=== PATIENT | male | born 1975 | race Caucasian/White ===

== ENCOUNTER → 2016-12-26 | Outpatient (CLI) | payer OTHER ==
[~2016-12-26] MED LIST: BSP15 PO; CLB200 PO; CYM/30 PO; GABA-113 PO; LANS30CA12 PO; NAPR-1169 PO; OXYC1TAB3 PO; POLY335019 PO; TOPI100T20 PO; TRAM-10 PO; [UNRECOGNIZED DRUG - REMARK] TOP
--- NOTE | 2016-12-26 11:53 | DIAGNOSTIC IMAGING REPORT ---
FLUOROSCOPIC SMALL BOWEL FOLLOW-THROUGH CLINICAL HISTORY: Generalized abdominal pain. Bloating. COMPARISON STUDY: No priors. TECHNIQUE: An abdominal concrete handler radiograph was performed. The patient consumed several of thin barium and a small follow-through was performed. Overhead radiographs and spot compression images were obtained. FINDINGS: The abdominal concrete handler radiograph shows a nonobstructed abdominal bowel gas pattern. No evidence of intraperitoneal free air is seen. Cholecystectomy clips are identified in the right upper quadrant. A nonobstructing left renal calculus is questioned. There is evidence of L4-S1 spinal fusion. The bony structures appear intact. On the small bowel follow-through, there is normal transit time with contrast identified in the colon at 80 minutes. The stomach and duodenum are normal in configuration. The small bowel mucosal pattern is normal. There is no evidence of stricture or mass. The distal/terminal ileum are normal in appearance on the spot compression views. Fluoroscopy time: 1.0 Fluoroscopic images: 8 IMPRESSION: Normal small bowel follow-through. Electronically signed by: Pan Downing M.D. 12/26/2016 11:51 AM Dictated Date/Time: 12/26/2016 11:49 AM
== END | disposition home or self-care (01) ==
LOC: C.RAD 10:03
PROVIDERS: ATTEND Nurse Practitioner Family
DX: R14.0 Abdominal distension (gaseous) (principal)

== ENCOUNTER → 2017-03-06 | Outpatient (CLI) | payer OTHER ==
[~2017-03-06] MED LIST changes: +GADAVIST IV PRN
--- NOTE | 2017-03-06 08:24 | DIAGNOSTIC IMAGING REPORT ---
LUMBAR SPINE COMBINATION HISTORY:41 yearsMale. History of back surgery 2016. One month ago the patient started to have recurrent back pain with radiculopathy into the bilateral lower extremities. No associated numbness or reported injury. COMPARISON: Fluoroscopically images of the lumbar spine 10/28/2016. TECHNIQUE: Multiplanar multisequence MR images of the lumbar spine were obtained both with and without the use of 11.5 mL Gadavist IV contrast. FINDINGS: Prior laminectomy with posterior interbody luis alberto and screw fixation at L4-L5 through L5-S1. Artifact from the metallic hardware mildly limits evaluation of these levels. The conus medullaris terminates at the L1-L2 level. Signal within the cord is unremarkable. There is a moderate amount of edema within the subcutaneous and deep soft tissues of the lumbar spine centered at L4-L5, nicely demonstrated on image 10 of the sagittal STIR series. There is adjacent micrometallic artifact. No loculated drainable collection is seen. There is no focal bone marrow edema, fracture or marrow replacing process. The imaged intra-abdominal and intrapelvic structures demonstrate no gross abnormality. T11-T12: Mild intervertebral disc space narrowing with circumferential annular disc bulge causes mild central canal narrowing is seen on the sagittal imaging alone. T12-L1: Unremarkable knee sagittal imaging alone. L1-L2: Mild facet arthropathy and small facet effusions without central canal or foraminal narrowing. L2-L3: Mild facet arthropathy and small facet effusions without central canal or foraminal narrowing. L3-L4: Mild intervertebral disc space narrowing with circumferential annular disc bulge and annular fissure. There is a large right paracentral/lateral recess disc extrusion which extends 1.6 cm caudal to the superior endplate of L4 and extends 7 mm posteriorly causing moderate to severe central canal and severe right lateral recess narrowing. This abuts and displaces the adjacent right L4 nerve root. There is also associated moderate facet arthrosis with facet effusions which cause mild to moderate left foraminal narrowing. Mild enhancement of the cauda equina seen best on the postcontrast sagittal images is present at this level. L4-L5: Moderate intervertebral disc space narrowing with posterior spondylitic ridging and severe facet arthropathy. Central/left paracentral disc osteophyte complex is present causing mild central canal and mild left lateral recess narrowing. There is also mild left foraminal narrowing. The right foramen is patent. L5-S1: Severe intervertebral disc space narrowing with posterior spinal ridging and circumferential annular disc bulge is present in conjunction with severe facet arthropathy. There is effacement of the ventral thecal sac without sniffed in central canal narrowing. There is mild left foraminal stenosis. The right foramen is patent. IMPRESSION: 1. Prior laminectomy with posterior interbody luis alberto and screw fixation at L4-L5 through L5-S1. 2. At L3-L4, there is a large right paracentral/right lateral recess disc extrusion causing moderate to severe central canal and severe right lateral recess narrowing. This abuts and displaces the adjacent right L4 nerve root. 3. Mild enhancement of the cauda equina adjacent to the disc extrusion as above may reflect some associated arachnoiditis. 4.There is a moderate amount of edema within the subcutaneous and deep soft tissues of the lumbar spine centered at L4-L5 with adjacent micrometallic artifact which is likely postsurgical. No loculated drainable collection is seen. 5. Additional multilevel discogenic degeneration and facet arthrosis as above. The above report was generated using voice recognition software. It may contain grammatical, syntax or spelling errors. Electronically signed by: Antwan Winkler 03/06/2017 8:23 AM Dictated Date/Time: 03/06/2017 8:06 AM
== END | disposition home or self-care (01) ==
LOC: C.MRI 07:06
PROVIDERS: ATTEND Physician Assistant
DX: M54.16 Radiculopathy, lumbar region (principal); M96.1 Postlaminectomy syndrome, not elsewhere classified; M51.37 Other intervertebral disc degeneration, lumbosacral region; M51.86 Other intervertebral disc disorders, lumbar region; M51.26 Other intervertebral disc displacement, lumbar region

== ENCOUNTER 2022-08-04 08:33 | Inpatient (IN) ==
--- NOTE | 2022-07-21 09:03 | PAT Medication Instructions ---
Medication Instructions Date of Service July 21, 2022 Home Medications Medication Instructions Recorded diazepam 5 mg tablet (Valium) 5 mg PO .COMPLEX #3 tabs 09/30/21 baclofen 10 mg tablet 10 mg PO .COMPLEX PRN spasm #180 04/02/22 tabs celecoxib 200 mg capsule (Celebrex) 200 mg PO DAILY #90 caps 06/19/22 buspirone 30 mg tablet 30 mg PO BID diazepam 5 mg tablet (Valium) 5 mg PO .COMPLEX atomoxetine 40 mg capsule (Strattera) 40 mg PO QAM methylphenidate HCl 10 mg tablet (Ritalin) 20 mg PO BID sertraline 50 mg tablet (Zoloft) 150 mg PO QAM baclofen 10 mg tablet 10 mg PO .COMPLEX PRN spasm clonazepam 0.5 mg tablet (Klonopin) 0.5 mg PO HS SLEEP celecoxib 200 mg capsule (Celebrex) 200 mg PO DAILY Medical Marijuana 1 dose inhalation UD PRN pain and anxiety albuterol 90 mcg/actuation aerosol inhaler 90 mcg inhalation QID PRN Shortness Of Breath Or Wheezing ranitidine HCl 150 mg tablet 150 mg PO BID ASK your surgeon for instructions celecoxib 200 mg capsule (Celebrex) 200 mg PO DAILY DO NOT take the morning of surgery atomoxetine 40 mg capsule (Strattera) 40 mg PO QAM methylphenidate HCl 10 mg tablet (Ritalin) 20 mg PO BID baclofen 10 mg tablet 10 mg PO .COMPLEX PRN spasm Medical Marijuana 1 dose inhalation UD PRN pain and anxiety Take morning of surgery With a small sip of water, OTHERWISE NOTHING TO EAT OR DRINK AFTER MIDNIGHT: buspirone 30 mg tablet 30 mg PO BID diazepam 5 mg tablet (Valium) 5 mg PO .COMPLEX (if needed) albuterol 90 mcg/actuation aerosol inhaler 90 mcg inhalation QID PRN Shortness Of Breath Or Wheezing (use if needed; please bring rescue inhaler with you to hospital day of surgery if possible) ranitidine HCl 150 mg tablet 150 mg PO BID Take evening before surgery buspirone 30 mg tablet 30 mg PO BID diazepam 5 mg tablet (Valium) 5 mg PO .COMPLEX (if needed) methylphenidate HCl 10 mg tablet (Ritalin) 20 mg PO BID baclofen 10 mg tablet 10 mg PO .COMPLEX PRN spasm (if needed) clonazepam 0.5 mg tablet (Klonopin) 0.5 mg PO HS SLEEP Medical Marijuana 1 dose inhalation UD PRN pain and anxiety (if needed) albuterol 90 mcg/actuation aerosol inhaler 90 mcg inhalation QID PRN Shortness Of Breath Or Wheezing (if needed) ranitidine HCl 150 mg tablet 150 mg PO BID Other Notes If you have any questions please call us at [phone] or [phone] or [phone] or [phone]
--- NOTE | 2022-07-22 11:01 | Anesthesiology Consultation ---
Date of Service July 22, 2022 Assessment & Plan (1) Encounter for pre-operative examination: COVID screening: Per assessment on 07/22: No known COVID-19 positive contacts or current COVID-19 related symptoms. Travel screen negative. At surgeon discretion if preop Covid testing being done. Chart Review Chart Review: Acceptable Risk for Surgery and Patient seen in Pre Admission Testing Teaching & Discussion Pre-Anesthesia Teaching/Discussion Notes: Instructed NPO after midnight before surgery,except medications with 15 cc of water. Medication instructions provided according to the PAT guidelines. History Surgery Operation Date: 08/04/22 07:45 Proposed Procedures p L2-L3 Decompression, L2-S1 Fusion, L3-S1 Hardware Removal, Spinal Cord Monitoring - Mikhail Howell, Height/Weight Height: 5 ft 11 in Weight: 101.2 kg Allergies Allergy/AdvReac Type Severity Reaction Status Date / Time No Known Allergies Allergy Verified 05/14/22 09:56 Medications Home Medications Medication Instructions Recorded Confirmed Last Taken buspirone 30 mg tablet 30 mg PO BID 05/10/18 07/17/22 Unknown diazepam 5 mg tablet (Valium) 5 mg PO .COMPLEX #3 tabs 09/30/21 07/17/22 Unknown atomoxetine 40 mg capsule 40 mg PO QAM 10/03/21 07/17/22 Unknown (Strattera) methylphenidate HCl 10 mg tablet 20 mg PO BID 10/03/21 07/17/22 Unknown (Ritalin) sertraline 50 mg tablet (Zoloft) 150 mg PO QAM 10/03/21 07/17/22 Unknown baclofen 10 mg tablet 10 mg PO .COMPLEX PRN spasm #180 04/02/22 07/17/22 Unknown tabs clonazepam 0.5 mg tablet (Klonopin) 0.5 mg PO HS SLEEP 05/14/22 07/17/22 Unknown celecoxib 200 mg capsule (Celebrex) 200 mg PO DAILY #90 caps 06/19/22 07/17/22 Unknown Medical Marijuana 1 dose inhalation UD PRN pain and 07/17/22 07/17/22 Unknown anxiety albuterol 90 mcg/actuation aerosol 90 mcg inhalation QID PRN 07/17/22 07/17/22 Unknown inhaler Shortness Of Breath Or Wheezing ranitidine HCl 150 mg tablet 150 mg PO BID 07/17/22 07/17/22 Unknown Past Medical History Medical History Anxiety and depression Cervical dystonia Cervical facet syndrome Cervicalgia Fatty liver GERD (gastroesophageal reflux disease) History of deviated nasal septum Hx of bronchitis Most recent 4 years ago- uses inhaler prn Lumbar facet joint syndrome Lumbar postlaminectomy syndrome Lumbar radiculitis Renal cyst Exercise / Class Metabolic Activity II 4-5 Yardwork/Stairs/Walk up hill (one FS (no CP, no SOB)) Past Family History Family History Other No family history of adverse response to anesthesia Past Surgical History Surgical History H/O shoulder surgery History of esophagogastroduodenoscopy (EGD) History of lumbar fusion L3-S1 (3 total lumbar procedures) Hx of arthroscopic knee surgery right Hx of colonoscopy Hx of endoscopic sinus surgery x3 Nausea and vomiting after administration of anesthetic agent Status post cervical spinal fusion Past Anesthesia History No Hx of Anesthesia Complications (except PONV) and No Family Hx of Anesthesia Complications History of PONV History of PONV and Hx of Motion Sickness (Occasional) Social History Smoking Status: Current some day smoker tobacco type: cigarettes Smoking cigarettes per day: social smoker- advised Do You Dip or Chew Tobacco: No Hx Alcohol Use: Yes alcohol intake frequency: holidays/special occasions only Hx Substance Use: Yes (medical marijuana prn- advised) substance use type: marijuana Review of Systems Patient denies chest pain, shortness of breath, dyspnea on exertion, fever, chills, cough, wheezing, palpitations. Physical Exam Vital Signs VITALS BP 113/78 P 98 TEMP 98.1 SP02 97%RA RESP 16 PHYSICAL Full cervical extension range of motion. Full TMJ range of motion. TMD 3 finger breaths Mallampati Score 1 Dentition: intact Lungs: clear throughout to auscultation Cardiac: regular rate and rhythm, no murmurs noted Spine: normal Carotid arteries: negative bruit Extremities: no edema Lab Results Anesthesia Preop Results Results Anesthesia Widget: WBC 4.98 K/ul (4.8-10.8) 07/22/22 Hgb 15.9 g/dl (14.0-18.0) 07/22/22 Hct 47.3 % (40.1-51.0) 07/22/22 Plt 174 K/uL (130-400) 07/22/22 Na 138 mmol/L (136-145) 07/22/22 K 5.0 mmol/L (3.5-5.1) 07/22/22 Cl 105 mmol/L (98-107) 07/22/22 CO2 28 mmol/L (21-32) 07/22/22 BUN 16 mg/dl (6-23) 07/22/22 Creat 0.90 mg/dl (0.6-1.4) 07/22/22 Glucose Level 77 mg/dl (70-99(Fasting)) 07/22/22 PT 11.2 Seconds (9.0-12.0) 07/22/22 PTT 27.3 Seconds (21.0-31.0) 07/22/22 INR 1.1 (0.9-1.1) 07/22/22 Urine Color Yellow 07/22/22 Urine Appearance Clear (Clear) 07/22/22 Urine pH 7.0 (4.5-7.5) 07/22/22 Urine Specific [place] 1.018 (1.000-1.030) 07/22/22 Urine Protein Trace (Negative) H 07/22/22 Urine Glucose (UA) Negative (Negative) 07/22/22 Urine Ketones Negative (Negative) 07/22/22 Urine Blood Negative (Negative) 07/22/22 Urine Nitrite Negative (Negative) 07/22/22 Urine Bilirubin Negative (Negative) 07/22/22 Urine Urobilinogen Negative (Negative) 07/22/22 Urine Leukocyte Esterase Negative (Negative) 07/22/22 Urine WBC (Auto) 1-5 /hpf (0-5) 07/22/22 Urine RBC (Auto) 0-4 /hpf (0-4) 07/22/22 Urine Hyaline Casts (Auto) 1-5 /lpf (0-5) 07/22/22 Urine Epithelial Cells (Auto) 0-5 /lpf (0-5) 07/22/22 Urine Bacteria (Auto) Negative (Negative) 07/22/22 Blood Type B Positive 07/22/22 Antibody Screen NEGATIVE 07/22/22 Testing Electrocardiogram Date: 04/17/22 Normal sinus rhythm at 79 bpm. Septal infarct, age undetermined versus delayed wave transition. Subsequent echo and stress test performed* Chest X-Ray Date: 07/22/22 FINDINGS: PA and lateral chest radiographs are obtained. No prior studies are available for comparison at the time of dictation. The cardiomediastinal silhouette is unremarkable. The lungs and pleural spaces are clear. There is no pneumothorax. The bony thorax appears intact. Fusion hardware is noted in the lower cervical spine. Cholecystectomy clips are seen in the right upper quadrant. IMPRESSION: No active disease in the chest. Echocardiogram Date: 04/25/22 EF 55-60%. No regional motion abnormality. Grade 1 diastolic dysfunction. Mildly dilated ascending aorta. No significant valvular disease. Stress Test Date: 04/23/22 Lexiscan stress EKG is not indicative of ischemia. Myocardial perfusion imaging: Normal. SPECT images demonstrate normal radiotracer uptake across all myocardial segments during both stress and rest imaging. Gated SPECT: The calculated LVEF 66%. No left ventricular regional wall motion abnormality noted. COVID-19 Risk Screen Screening Information COVID-19 Screen Date: 07/22/22 Exposure 21 Days Family/Household +COVID Last 21 Days: No Exposure 10 Days Any COVID Exposure Last 10 Days: No Symptoms Last 10 Days Experienced COVID Sx Last 10 Days: No + COVID 0-90 Days COVID + in Last 0-90 Days: No
[~2022-08-04 08:33] MED LIST changes: +ACETAMINOPHEN 500 MG TAB PO SCH; -BSP15 PO; -CLB200 PO; -CYM/30 PO; +CeleBREX 200 MG CAP PO SCH; -GABA-113 PO; +GABAPENTIN 900 MG DOSE PO SCH; -GADAVIST IV PRN; -LANS30CA12 PO; +LR 15ML/HR IV SCH; -NAPR-1169 PO; -OXYC1TAB3 PO; -POLY335019 PO; -TOPI100T20 PO; -TRAM-10 PO; -[UNRECOGNIZED DRUG - REMARK] TOP; +ceFAZolin 2000MG 2,000 MG/15 ML SYR IV SCH
[2022-08-04] MEDS ORDERED: ONDANSETRON INJ 2 MG/ML 2 ML VIAL IV PRN ×2 (09:21→14:20)
[2022-08-04] MEDS ORDERED: PROMETHAZINE HCL 6.25 MG in SODIUM CHLORIDE 0.9% 50 ML IV PRN (09:21)
[2022-08-04] MEDS ORDERED: ePHEDrine sulfate 50 MG/ML AMP IV PRN (09:21)
[2022-08-04] MEDS ORDERED: ATROPINE SULFATE 0.1 MG/ML 10ML SYR IV PRN (09:21)
[2022-08-04] MEDS ORDERED: LIDOCAINE 2% MPF LOCAL 5 ML VIAL INFIL ONE (09:24)
[2022-08-04] MEDS ORDERED: DEXAMETHASONE SOD INJ 4 MG/ML VIAL ONE (09:24)
[2022-08-04] MEDS ORDERED: PROPOFOL IV EMULSION 10 MG/ML 20 ML VIAL IV ONE ×2 (09:25→12:09)
[2022-08-04] MEDS ORDERED: ONDANSETRON INJ 2 MG/ML 2 ML VIAL ONE (09:25)
[2022-08-04] MEDS ORDERED: ROCURONIUM BROMIDE 10 MG/ML 5 ML VIAL IV ONE (09:25)
--- NOTE | 2022-08-04 09:34 | History & Physical Bridge Note ---
Date of Service August 04, 2022 History & Physical Bridge Note I have examined the patient, reviewed the History & Physical and in the interval since the performance of the History & Physical I have noted the following changes of clinical significance: no changes noted
--- NOTE | 2022-08-04 09:35 | History & Physical Report ---
Date of Service August 04, 2022 Assessment & Plan (1) Neurogenic claudication due to lumbar spinal stenosis: Plan: Hardware removal L3-S1 with decompression L2-L3 and fusion L2-S1. History of Present Illness Chief Complaint: Back and leg pain Primary Care Provider: NO PCP This is a 38-year-old male presents with chronic persistent back and leg pain. Failed extensive course of nonoperative care is here for surgical intervention. Allergies Allergy/AdvReac Type Severity Reaction Status Date / Time No Known Allergies Allergy Verified 08/04/22 09:07 Home Medications Medication Instructions Recorded Confirmed Type buspirone 30 mg tablet 30 mg PO BID 05/10/18 08/04/22 History diazepam 5 mg tablet (Valium) 5 mg PO .COMPLEX #3 tabs 09/30/21 08/04/22 Rx atomoxetine 40 mg capsule 40 mg PO QAM 10/03/21 08/04/22 History (Strattera) methylphenidate HCl 10 mg tablet 20 mg PO BID 10/03/21 08/04/22 History (Ritalin) sertraline 50 mg tablet (Zoloft) 150 mg PO QAM 10/03/21 08/04/22 History baclofen 10 mg tablet 10 mg PO .COMPLEX PRN spasm #180 04/02/22 08/04/22 Rx tabs clonazepam 0.5 mg tablet (Klonopin) 0.5 mg PO HS SLEEP 05/14/22 08/04/22 History celecoxib 200 mg capsule (Celebrex) 200 mg PO DAILY #90 caps 06/19/22 08/04/22 Rx Medical Marijuana 1 dose inhalation UD PRN pain and 07/17/22 08/04/22 History anxiety albuterol 90 mcg/actuation aerosol 90 mcg inhalation QID PRN 07/17/22 08/04/22 History inhaler Shortness Of Breath Or Wheezing ranitidine HCl 150 mg tablet 150 mg PO BID 07/17/22 08/04/22 History Past Med/Surg History Medical History Anxiety and depression Cervical dystonia Cervical facet syndrome Cervicalgia Fatty liver GERD (gastroesophageal reflux disease) History of deviated nasal septum Hx of bronchitis Most recent 4 years ago- uses inhaler prn Lumbar facet joint syndrome Lumbar postlaminectomy syndrome Lumbar radiculitis Renal cyst Surgical History H/O shoulder surgery History of esophagogastroduodenoscopy (EGD) History of lumbar fusion L3-S1 (3 total lumbar procedures) Hx of arthroscopic knee surgery right Hx of colonoscopy Hx of endoscopic sinus surgery x3 Nausea and vomiting after administration of anesthetic agent Status post cervical spinal fusion Family History Other No family history of adverse response to anesthesia Social History Smoking Status: Current some day smoker Cigarettes Per Day: social smoker- advised; Second Hand Exposure: No; Do You Dip or Chew Tobacco: No; Tobacco Cessation Education Requested by Patient: No Hx Alcohol Use: Yes Hx Substance Use: Yes (medical marijuana prn- advised) Preferred Language: Kiswahili Communication Ability: Effective Visual Impairment: No Limitations Hearing Ability: Normal Dental Lab Technician Required: No Beliefs That Will Affect Care: None marital status: Current Living Situation: Spouse current occupational status: retired Other Information That Helps Us Care for You: No Feels Safe at Home: Yes Safety Concerns: Feels Safe At This Time Assistive Devices: Glasses and Hearing Aid - Left Physical Exam Physical Exam: Patient is alert and oriented Heart regular rhythm Lungs clear Results & Data Results & Data ([facility]) Vital Signs (Past 12 Hours) Vital Signs Temp Pulse Resp BP Pulse Ox O2 Del Method 08/04/22 09:12 36.8 C 84 16 124/83 98 Room Air
[2022-08-04] MEDS ORDERED: MIDAZOLAM HCL 1 MG/ML 2ML VIAL ONE ×2 (09:46→09:49)
[2022-08-04] MEDS ORDERED: fentaNYL citrate 100 MCG/2 ML VIAL ONE (09:46)
[2022-08-04] MEDS ORDERED: ceFAZolin 330 MG/ML 1 GM VIAL ONE (09:47)
[2022-08-04] MEDS ORDERED: BUPIVACAINE/EPINEPHRINE 0.25% 1:200,000 30 ML VIAL ONE (09:47)
[2022-08-04] MEDS ORDERED: KETAMINE 50 MG/5 ML SYRINGE ONE (09:49)
[2022-08-04] MEDS ORDERED: REMIFENTANIL HCL 1 MG VIAL IV ONE (09:49)
[2022-08-04] MEDS ORDERED: FLOSEAL HEMOSTATIC MATRIX 10ML TOP ONE (11:06)
[2022-08-04] MEDS ORDERED: GLYCOPYRROLATE 0.2 MG/ML VIAL ONE (12:09)
--- NOTE | 2022-08-04 12:20 | Operative Report ---
Post Operative Report Pre & Post Diagnosis Operation Date: 08/04/22 10:05 Pre-Op Diagnosis: Neurogenic Claudication due to Lumbar Spinal Stenosis Post-Op Diagnosis: Neurogenic Claudication due to Lumbar Spinal Stenosis I identified the patient and participated in the time-out.: Yes Procedure Operation Date: 08/04/22 10:05 Actual Procedures #1 removal of posterior segmental instrumentation L3-S1. #2 exploration of fusion L3-S1 with evidence of nonunion L3-L4. #3 lumbar decompression with bilateral medial facetectomies and foraminotomies L1 L2 L2-L3. #4 posterior spinal fusion L2-L3 L3-L4. #5 placement posterior instrumentation L2-L5. #6 interbody fusion L2-L3. #7 placement of Spira 12 x 26 mm at L2-L3. #8 placement locally harvested morselized autograft and posterior gutters. #9 placement of I factor in the interbody space and infuse collagen sponge in the posterior gutters L2-L4. Surgeon Mikhail Howell, DO Thermodynamics Engineer Tiffany Hurtado Estimated Blood Loss 300 Findings See Below The patient is 5 foot 11 weighing over 101 kg with a BMI in excess of 31. Patient's body habitus did contribute to significant technical difficulty required. Retractors and longer instruments in order to perform his procedure. This at least 50% increased operative time. Specimens None Indications This is a 46-year-old male who presents above-mentioned diagnosis after failing course of nonoperative care is here for surgical invention. Description of Procedure Patient was met with identified informed consent obtained. Patient was then taken to the operative suite underwent a patient placed in a prone position the [place] table top Jaswant frame. All bony prominences well-padded eyes inspected to ensure no external pressure placed upon them. This point the lumbar spine was prepped and draped in a sterile fashion. Sharp dissection with the assistance bradycardia from down to and exposing the lamina and transverse processes of L2 and instrumentation L3-L4-L5 and S1 levels bilaterally. Then proceeded move the hardware bilaterally noticing marked loosening of the screws at L3 and L4 as well as broken screws at S1 bilaterally. There is evidence of nonunion L3-L4 upon exploration of fusion. I then performed a complete laminectomy of L2 partial medical L1 including bilateral medial facetectomies and foraminotomies addressing severe spinal stenosis. Pedicle screws were then placed in L2-L3 L4-L5 bilaterally with assistance of fluoroscopy and properly sized luis alberto placed. By way of a transforaminal portion radically discectomy of L2-L3 was performed endplates curetted to subcortical bleeding bone and a 12 x 26 mm spiral cage with I factor tapped in position. The rods were then locked in final position bilaterally. The transverse processes of L2-L3-L4 burred to subcortical bleeding bone. Infuse collagen sponge combined with V toss and locally harvested morselized autograft was placed in the posterior gutters. 15 round SARAH inserted. The incision was then closed with 1 Vicryl the fascia 2-0 Vicryl subcutaneously and 4 Monocryl for final skin closure. Steri-Strips dressings placed. Patient waken taken to PACU in stable condition. Please note spinal cord monitoring was utilized at the procedure no changes noted. Lastly Tiffany Hurtado was present at the entire surgeon while the patient positioning complex portions of the surgery and final skin closure. I attest to the content of the Intraoperative Record and any orders documented therein. Any exceptions are noted below.
[2022-08-04] MEDS: fentaNYL citrate 100 MCG/2 ML VIAL IV PRN ×4 (12:40→13:02)
--- NOTE | 2022-08-04 13:02 | Fluoroscopy Report ---
FL lumbar spine 2-3V HISTORY: 46 years-old Male L2-L3 Decompression, L2-S1 fusion, L3-S1 hardware removal COMPARISON: 04/07/2018 TECHNIQUE: 2 spot fluoroscopic images of the lumbar spine were obtained utilizing 12 seconds fluorosc opy time FINDINGS: 4 level posterior interbody luis alberto and screw fusion hardware is noted, exact numbering is not definitive based on magnification of the film, however appears to extend from the level of L2-L5 with L5-S1 and L2-L3 discectomy. Images were submitted after the completion of the surgery. IMPRESSION: Fluoroscopic assistance as above. ACT 112: Negative or not required by law. The above report was generated using voice recognition software. It may contain grammatical, syntax o r spelling errors. Electronically signed by: Mt Winkler M.D. 08/04/2022 1:01 PM
[2022-08-04] MEDS: HYDROmorphone INJ 2 MG/ML SYR/VIAL IV PRN ×2 (13:13→13:31)
[2022-08-04] MEDS ORDERED: PROMETHAZINE HCL INJ 25 MG/ML 1 ML VIAL ONE (13:18)
[2022-08-04] MEDS ORDERED: SODIUM CHLORIDE 0.9% 50 ML BAG ONE (13:18)
[2022-08-04] MEDS ORDERED: ONDANSETRON 4 MG OD TAB PO PRN (14:20)
[2022-08-04] MEDS ORDERED: LORazepam 0.5 MG TAB PO PRN (14:20)
[2022-08-04] MEDS ORDERED: hydrOXYzine HCl 25 MG TAB PO PRN (14:20)
[2022-08-04] MEDS ORDERED: METOCLOPRAMIDE HCL INJ 5 MG/ML 2 ML VIAL IV PRN (14:20)
[2022-08-04] MEDS ORDERED: NALOXONE HCL 0.4 MG/1 ML VIAL/CARP IV PRN (14:20)
[2022-08-04] MEDS ORDERED: LORazepam 0.5 MG in SYRINGE 0 ML IV PRN (14:20)
[2022-08-04] MEDS ORDERED: PROMETHAZINE HCL 12.5 MG in SODIUM CHLORIDE 0.9% 50 ML IV PRN (14:20)
[2022-08-04] MEDS ORDERED: BACLOFEN 10 MG TAB PO PRN (14:20)
[2022-08-04] MEDS ORDERED: DO NOT ADMINISTER PNEUMOCOCCAL VACCINE PRN (14:20)
[2022-08-04] MEDS ORDERED: MAGNESIUM HYDROXIDE SUSP 30 ML UDC PO PRN (14:20)
[2022-08-04] MEDS ORDERED: ACETAMINOPHEN 500 MG TAB PO PRN (14:20)
[2022-08-04] MEDS ORDERED: diphenhydrAMINE Capsule 25 MG CAP PO PRN (14:20)
[2022-08-04] MEDS ORDERED: SOD PHOSPHATE/SOD BIPHOSPHATE ENEMA 132 ML BTL PR PRN (14:20)
[2022-08-04] MEDS ORDERED: DO NOT ADMINISTER FLU VACCINE PRN (14:20)
[2022-08-04] MEDS ORDERED: bisacodyL 10 MG SUPP PR PRN (14:20)
[2022-08-04] MEDS ORDERED: ACETAMINOPHEN 1,000 MG/100 ML VIAL IV PRN (14:20)
[2022-08-04] MEDS ORDERED: ALUMINUM/MAGNESIUM SUSP 30 ML UDC PO PRN (14:20)
--- NOTE | 2022-08-04 14:23 | Anesthesiology Progress Note ---
Date of Service August 04, 2022 Anesthesia Post Procedure Vital Signs Vital Signs: Temp Pulse Resp BP Pulse Ox O2 Del Method O2 Flow Rate 08/04/22 14:00 76 12 135/74 96 Room Air 08/04/22 13:50 64 12 130/79 94 Room Air 08/04/22 13:40 36.4 C L 62 12 131/78 100 Room Air 08/04/22 13:30 71 12 117/85 98 Room Air 08/04/22 13:20 59 L 13 126/83 96 Room Air 08/04/22 13:10 63 12 128/87 98 Room Air 08/04/22 13:00 66 14 141/85 H 100 Oxymask 5 08/04/22 12:50 62 12 148/84 H 100 Oxymask 7 08/04/22 12:40 65 13 110/84 100 Oxymask 9 08/04/22 12:34 36.2 C L 70 14 118/83 99 Oxymask 9 08/04/22 09:12 36.8 C 84 16 124/83 98 Room Air Pain Intensity Bilateral Lower Back: Pain Intensity: 5 Left Upper Back: Pain Intensity: 5 Bilateral Leg: Pain Intensity: 5 Back: Pain Intensity: 3 Transfer of Care Handoff Completed per policy Notes Mental Status: alert / awake / arousable Patient Amnestic to Procedure: Yes Nausea / Vomiting: adequately controlled Pain: adequately controlled Airway Patency, RR, SpO2: stable & adequate BP & HR: stable & adequate Hydration State: stable & adequate Anesthetic Complications: no major complications apparent
[2022-08-04] MEDS ORDERED: ALBUTEROL HFA 8 GM INHALER INH PRN (14:25)
--- NOTE | 2022-08-04 14:35 | Consultation ---
Date of Consultation August 04, 2022 Assessment & Plan (1) Neurogenic claudication due to lumbar spinal stenosis: (2) GERD (gastroesophageal reflux disease): (3) Anxiety and depression: Plan 46-year-old male elective surgical intervention under the care of Dr. Howell after a failed extensive course of nonoperative care. Patient was experiencing neurogenic claudication due to lumbar stenosis and a decompression and fusion surgery was performed today L1-L4 . Patient has an additional past medical history that includes anxiety and depression, GERD and ADHD. Neurogenic claudication due to lumbar spinal stenosis: POD#0 s/p Decompression fusion L1-L4 with Dr. Howell. Per ortho for pain control, wound care, anticoagulation and activities. Monitor H&H; baseline Hgb 15.9; trend in AM Continue incentive spirometry; patient demonstrated appropriate use PT/OT when appropriate Advanced diet as tolerated GERD: Takes Zantac; continue Anxiety and depression: Takes buspirone 30 mg p.o. twice daily and also takes sertraline 150 mg daily; continue Takes Clonazepam 0.5 mg PO QHS; continue ADHD: Takes Methylphenidate 20 mg PO BID; continue Takes Strattera 40 mg PO QAM; continue Disposition: PCP: [facility] CODE STATUS: full code VTE prophylaxis:SCD and teds for now I personally was able to review all current laboratory work and diagnostic images obtained in the ED. Additionally, I was able to review the patients past medication reconciliation and history with direct visualization in the patients chart. Patient was discussed and collaborated with Dr. Caldwell. Please see her addendum for further details. [facility]; we are available 23/03 via [employer] for any additional assistance or questions. History of Present Illness Reason for Consultation: post operative medical consultation Attending Physician: Mikhail Howell, DO History of Present Illness Mr. Ta Velasquez is a 46-year-old male that presents to the [facility] for an elective surgical intervention under the care of Dr. Howell after a failed extensive course of nonoperative care. Patient was experiencing neurogenic claudication due to lumbar stenosis and a decompression and fusion surgery was performed today L1-L4 . Patient has an additional past medical history that includes anxiety and depression, GERD and ADHD. PSH includes previous C6-C7 colposcopy surgery in [place]. Additionally patient reports that he had a decompression fusion in 2017 with [address] Dr[address] Mcgee in [place]. The patient was AAOx4 when I entered the room and he was sitting upright in his hospital bed in no apparent distress. Patient denies headache, dizziness, chest pain, shortness of breath, palpitations, nausea, vomiting, diarrhea. Patient is able to move all extremities. without pain in his lower extremities and denies numbness and tingling. Patient has just taken 1 dose of IV pain meds. Patient had a SARAH drain x1 draining's bright red blood. . He has tolerated gingerale and will advance diet as ordered. Patient reports that he is a social smoker but does not require nicotine patch. Patient denies alcohol and recreational drug use however does have a medical marijuana card for anxiety. [facility] hospitalist service was consulted for postoperative medical management. Please see A/P for further details. Allergies Allergy/AdvReac Type Severity Reaction Status Date / Time No Known Allergies Allergy Verified 08/04/22 09:07 Home Medications Medication Instructions Recorded Confirmed Type buspirone 30 mg tablet 30 mg PO BID 05/10/18 08/04/22 History diazepam 5 mg tablet (Valium) 5 mg PO .COMPLEX #3 tabs 09/30/21 08/04/22 Rx atomoxetine 40 mg capsule 40 mg PO QAM 10/03/21 08/04/22 History (Strattera) methylphenidate HCl 10 mg tablet 20 mg PO BID 10/03/21 08/04/22 History (Ritalin) sertraline 50 mg tablet (Zoloft) 150 mg PO QAM 10/03/21 08/04/22 History baclofen 10 mg tablet 10 mg PO .COMPLEX PRN spasm #180 04/02/22 08/04/22 Rx tabs clonazepam 0.5 mg tablet (Klonopin) 0.5 mg PO HS SLEEP 05/14/22 08/04/22 History celecoxib 200 mg capsule (Celebrex) 200 mg PO DAILY #90 caps 06/19/22 08/04/22 Rx Medical Marijuana 1 dose inhalation UD PRN pain and 07/17/22 08/04/22 History anxiety albuterol 90 mcg/actuation aerosol 90 mcg inhalation QID PRN 07/17/22 08/04/22 History inhaler Shortness Of Breath Or Wheezing ranitidine HCl 150 mg tablet 150 mg PO BID 07/17/22 08/04/22 History Patient History Medical History (Updated 08/04/22 @ 14:42 by JUHI Qureshi) Anxiety and depression Cervical dystonia Cervical facet syndrome Cervicalgia Fatty liver GERD (gastroesophageal reflux disease) History of deviated nasal septum Hx of bronchitis Most recent 4 years ago- uses inhaler prn Lumbar facet joint syndrome Lumbar postlaminectomy syndrome Lumbar radiculitis Renal cyst Surgical History H/O shoulder surgery History of esophagogastroduodenoscopy (EGD) History of lumbar fusion L3-S1 (3 total lumbar procedures) Hx of arthroscopic knee surgery right Hx of colonoscopy Hx of endoscopic sinus surgery x3 Nausea and vomiting after administration of anesthetic agent Status post cervical spinal fusion Family History Other No family history of adverse response to anesthesia Social History Smoking Status: Current some day smoker Cigarettes Per Day: social smoker- advised; Second Hand Exposure: No; Do You Dip or Chew Tobacco: No; Tobacco Cessation Education Requested by Patient: No Hx Alcohol Use: Yes Hx Substance Use: Yes (medical marijuana prn- advised) Preferred Language: Czech Communication Ability: Effective Visual Impairment: No Limitations Hearing Ability: Normal Matlab Developer Required: No Beliefs That Will Affect Care: None marital status: Current Living Situation: Spouse current occupational status: retired Other Information That Helps Us Care for You: No Feels Safe at Home: Yes Safety Concerns: Feels Safe At This Time Assistive Devices: Glasses and Hearing Aid - Left Review of Systems Review of Systems: Neuro: (-) Falls, trauma, slurred speech HEENT: (-) BOWMAN, dizziness, dysphagia, visual or auditory changes CV: (-) CP, palpitations, swelling Resp: (-) SOB GI: (-) appetite changes, N/V/D, bowel changes : (-) urinary changes Skin: (-) rashes Psych: (-) anxiety, depression Physical Exam Physical Exam: Neuro: AAOx4, PERRLA, no aphagia, memory changes, CNII-XII grossly intact HEENT: head normocephalic, moist mucus membranes CV: S1/S2, (-) M/G/R, (-) edema, cap refill < 3 seconds Resp: Lungs CTA in all shukla. On RA GI: Abdomen S/NT/ND, Ax4 bowel sounds, (-) CVA tenderness Musculoskeletal: 5/5 B/L UE strength, 5/5 B/L LE strength. No gait disturbance (-) numbness of tingling in BL LE. Skin: (-) rashes , (-) erythema. Psych: euthymic mood Results & Data ([facility]) Vital Signs (Past 12 Hours) Vital Signs Temp Pulse Resp BP Pulse Ox O2 Del Method O2 Flow Rate 08/04/22 14:00 76 12 135/74 96 Room Air 08/04/22 13:50 64 12 130/79 94 Room Air 08/04/22 13:40 36.4 C L 62 12 131/78 100 Room Air 08/04/22 13:30 71 12 117/85 98 Room Air 08/04/22 13:20 59 L 13 126/83 96 Room Air 08/04/22 13:10 63 12 128/87 98 Room Air 08/04/22 13:00 66 14 141/85 H 100 Oxymask 5 08/04/22 12:50 62 12 148/84 H 100 Oxymask 7 08/04/22 12:40 65 13 110/84 100 Oxymask 9 08/04/22 12:34 36.2 C L 70 14 118/83 99 Oxymask 9 08/04/22 09:12 36.8 C 84 16 124/83 98 Room Air Diagnostic Findings Lumbar Spine X-Ray 08/04/22 00:00 FL lumbar spine 2-3V HISTORY: 46 years-old Male L2-L3 Decompression, L2-S1 fusion, L3-S1 hardware removal COMPARISON: 04/07/2018 TECHNIQUE: 2 spot fluoroscopic images of the lumbar spine were obtained utilizing 12 seconds fluoroscopy time FINDINGS: 4 level posterior interbody luis alberto and screw fusion hardware is noted, exact numbering is not definitive based on magnification of the film, however appears to extend from the level of L2-L5 with L5-S1 and L2-L3 discectomy. Images were submitted after the completion of the surgery. IMPRESSION: Fluoroscopic assistance as above. ACT 112: Negative or not required by law. The above report was generated using voice recognition software. It may contain grammatical, syntax or spelling errors. Electronically signed by: Mt Winkler M.D. 08/04/2022 1:01 PM
[2022-08-04] MEDS ORDERED: MEDICAL MARIJUANA INH PRN (14:40)
[2022-08-04] MEDS: HYDROmorphone INJ 1 MG/ML SYRINGE IV PRN (15:06)
[2022-08-04] MEDS: LACTATED RINGER'S 1,000 ML IV SCH ×2 (15:07→20:58)
[2022-08-04] MEDS: oxyCODONE HCL IR 5 MG TAB (IMMEDIATE RELEASE) PO PRN ×2 (16:56→20:52)
[2022-08-04] MEDS: ceFAZolin 2000MG 2,000 MG/15 ML SYR IV SCH (18:36)
[2022-08-04] MEDS: FAMOTIDINE 20 MG TAB PO SCH (20:51)
[2022-08-04] MEDS: DOCUSATE SODIUM/SENNA 50/8.6MG TAB PO SCH (20:51)
[2022-08-04] MEDS: busPIRone 15 MG TAB PO SCH (20:51)
[2022-08-04] MEDS: clonazePAM 0.5 MG TAB PO SCH (20:52)
[2022-08-04] MEDS: METHYLPHENIDATE HCL 10 MG TABLET PO SCH (20:57)
[2022-08-04] MEDS: HYDROmorphone INJ 0.5 MG/0.5 ML SYR IV PRN (23:26)
[2022-08-05] MEDS: ceFAZolin 2000MG 2,000 MG/15 ML SYR IV SCH (02:50)
[2022-08-05] MEDS: HYDROmorphone INJ 0.5 MG/0.5 ML SYR IV PRN ×2 (02:56→17:57)
[2022-08-05] MEDS: LACTATED RINGER'S 1,000 ML IV SCH (02:58)
[2022-08-05] MEDS: POLYETHYLENE (MIRALAX) 17 GM PACK PO SCH ×2 (06:14→12:38)
[2022-08-05] MEDS: METHYLPHENIDATE HCL 10 MG TABLET PO SCH ×3 (07:13→14:04)
[2022-08-05] MEDS: ATOMOXETINE HCL 40 MG CAPSULE PO SCH (07:13)
[2022-08-05] MEDS: SERTRALINE HCL 50 MG TABLET PO SCH (07:13)
[2022-08-05] MEDS: HYDROmorphone INJ 1 MG/ML SYRINGE IV PRN (07:27)
[2022-08-05] MEDS ORDERED: Nursing to Pharmacy Communication SCH (08:00)
[2022-08-05 08:11] LABS: Basophils # (auto) 0.02 K/uL (0-0.2); Basophils % (auto) 0.2 %; Eosinophils # (auto) 0.02 K/uL (0-0.50); Eosinophils % (auto) 0.2 %; Hematocrit (blood only) 38.3 % (40.1-51.0); Hemoglobin 12.7 g/dl (14.0-18.0); Immature Granulocytes # (auto) 0.03 K/uL (0.00-0.02); Immature Granulocytes % (auto) 0.3 %; Lymphocytes # (auto) 1.89 K/uL (1.2-3.4); Lymphocytes % (auto) 17.7 %; Mean Corpuscular Hemoglobin 29.8 pg (25.0-34.0); Mean Corpuscular Hgb Conc 33.2 g/dL (32.0-36.0); Mean Corpuscular Volume 89.9 fL (80.0-100.0); Mean Platelet Volume 11.4 fL (9.4-12.4); Monocytes # (auto) 0.98 K/uL (0.24-0.82); Monocytes % (auto) 9.2 %; Neutrophils # (auto) 7.72 K/uL (1.4-6.5); Neutrophils % (auto) 72.4 %; Platelet Count 167 K/uL (130-400); RDW Coefficient of Variation 13.2 % (11.5-14.5); RDW Standard Deviation 43.7 fL (36.4-46.3); Red Blood Count 4.26 M/uL (4.63-6.08); White Blood Count 10.66 K/ul (4.8-10.8)
[2022-08-05] MEDS: dexAMETHasone 6 MG in SYRINGE 0 ML IV SCH (08:38)
[2022-08-05] MEDS: FAMOTIDINE 20 MG TAB PO SCH ×2 (08:38→20:43)
[2022-08-05] MEDS: busPIRone 15 MG TAB PO SCH ×2 (08:38→20:43)
[2022-08-05 08:59] LABS: Calcium 8.5 mg/dl (8.5-10.1); Creatinine Clr Calc Pharmacy 127.3 ml/min; Est GFR (African American) 118.8 ml/min; Est GFR (Non-African American) 102.5 ml/min; Potassium 3.6 mmol/L (3.5-5.1)
--- NOTE | 2022-08-05 10:39 | Orthopedic Progress Note ---
Date of Service August 05, 2022 Assessment & Plan (1) Neurogenic claudication due to lumbar spinal stenosis: Plan: At this time we will continue physical therapy monitor his SARAH output anticipate discharge home in next day or so. Admission and Anticipated Discharge Date Admission Date: August 04, 2022 Subjective Patient back pain is controlled leg symptoms markedly improved Physical Exam Physical Exam: On exam is grossly testing peers comfortable. Results & Data ([facility]) Vital Signs (Past 12 Hours) Vital Signs Temp Pulse Resp BP Pulse Ox O2 Del Method 08/05/22 07:31 36.6 C 79 16 126/86 99 Room Air 08/05/22 07:17 36.9 C 68 18 117/82 98 Room Air 08/05/22 02:06 36.7 C 71 16 124/78 97 Room Air
[2022-08-05] MEDS: HYDROCODONE/ACETAMOPHEN 5/325MG TAB PO PRN ×2 (12:41→20:06)
--- NOTE | 2022-08-05 16:39 | Hospitalist Progress Note ---
Date of Service August 05, 2022 Assessment & Plan (1) Neurogenic claudication due to lumbar spinal stenosis: (2) GERD (gastroesophageal reflux disease): (3) Anxiety and depression: Plan Patient is a 46 yr male with H/O of anxiety and depression, GERD and ADHD had elective surgical intervention by Dr. Howell was consulted for postop medical management Neurogenic claudication due to lumbar spinal stenosis: S/P Decompression fusion L1-L4 with Dr. Howell on 08/04/22 Expected postoperative acute blood loss anemia Pain management, wound care, anticoagulation as per primary team Continue incentive spirometer Continue PT OT Continue Bowel regimen Monitor CBC GERD: Continue Pepcid Anxiety and depression: Continue home medications ADHD: on Methylphenidate, Strattera DVT Px: per Primary team Code Status Full Code Admission and Anticipated Discharge Date Admission Date: August 04, 2022 Subjective Patient is seen and examined at bedside Back pain at surgical site is controlled Reports constipation + Flatus Denies any chest pain, dyspnea, dizziness, nausea, abdominal pain Ambulating in hallway Review of Systems Review of Systems: All systems reviewed & are unremarkable except as noted in Subjective Physical Exam Physical Exam: Physical Exam: Vitals signs as noted above General Appearance:Moderately built and nourished, no apparent distress Head: normocephalic, Atraumatic Eyes: normal inspection, EOMI, Neck: supple, Trachea midline Respiratory/Chest: Normal breath sounds, CTA, No accessory muscle use Cardiovascular: S1, S2, No murmur Back: Surgical site in dressing, +Drain Abdomen/GI:Soft, Non tender, Bowel sounds present Extremities/Musculoskeletal:normal inspection, no edema Neurologic/Psych:AAOX3, grossly no focal neurological deficits Skin: normal color, warm Results & Data Results & Data ([facility]) Vital Signs (Past 12 Hours) Vital Signs Temp Pulse Resp BP Pulse Ox O2 Del Method 08/05/22 14:43 36.7 C 101 H 18 121/83 94 Room Air 08/05/22 11:21 36.6 C 74 18 124/80 99 Room Air 08/05/22 07:31 36.6 C 79 16 126/86 99 Room Air 08/05/22 07:17 36.9 C 68 18 117/82 98 Room Air Laboratory Results Short CBC 08/05/22 Range/Units 07:50 WBC 10.66 (4.8-10.8) K/ul Hgb 12.7 L (14.0-18.0) g/dl Hct 38.3 L (40.1-51.0) % Plt Count 167 (130-400) K/uL [facility] 08/05/22 07:50 Sodium 140 Potassium 3.6 Chloride 106 Carbon Dioxide 30 BUN 12 Creatinine 0.86 Glucose 89 Calcium 8.5
[2022-08-05] MEDS: DOCUSATE SODIUM/SENNA 50/8.6MG TAB PO SCH (20:40)
[2022-08-05] MEDS: clonazePAM 0.5 MG TAB PO SCH (20:42)
[2022-08-05] MEDS: traMADol HCL 50 MG TABLET PO PRN (23:16)
[2022-08-06] MEDS: traMADol HCL 50 MG TABLET PO PRN ×2 (04:45→13:05)
[2022-08-06 06:48] LABS: Hematocrit (blood only) 34.7 % (40.1-51.0); Hemoglobin 11.8 g/dl (14.0-18.0); Mean Corpuscular Hemoglobin 29.7 pg (25.0-34.0); Mean Corpuscular Volume 87.4 fL (80.0-100.0); Mean Platelet Volume 11.4 fL (9.4-12.4); Platelet Count 143 K/uL (130-400); RDW Coefficient of Variation 13.2 % (11.5-14.5); RDW Standard Deviation 42.5 fL (36.4-46.3); Red Blood Count 3.97 M/uL (4.63-6.08); White Blood Count 8.79 K/ul (4.8-10.8)
[2022-08-06 07:15] LABS: BUN Creatinine Ratio 14.7 (10-20); Calcium 8.4 mg/dl (8.5-10.1); Creatinine Clr Calc Pharmacy 145.9 ml/min; Est GFR (African American) 125.7 ml/min; Est GFR (Non-African American) 108.5 ml/min; Potassium 3.8 mmol/L (3.5-5.1)
[2022-08-06] MEDS: METHYLPHENIDATE HCL 10 MG TABLET PO SCH (07:48)
[2022-08-06] MEDS: SERTRALINE HCL 50 MG TABLET PO SCH (07:48)
[2022-08-06] MEDS: HYDROCODONE/ACETAMOPHEN 5/325MG TAB PO PRN (07:48)
[2022-08-06] MEDS: FAMOTIDINE 20 MG TAB PO SCH (07:49)
[2022-08-06] MEDS: dexAMETHasone 6 MG in SYRINGE 0 ML IV SCH (07:49)
[2022-08-06] MEDS: ATOMOXETINE HCL 40 MG CAPSULE PO SCH (07:49)
[2022-08-06] MEDS: busPIRone 15 MG TAB PO SCH (07:49)
--- NOTE | 2022-08-06 10:24 | Discharge Summary ---
Date of Service August 06, 2022 Admission HPI Per Admitting Provider This is a 38-year-old male presents with chronic persistent back and leg pain. Failed extensive course of nonoperative care is here for surgical intervention. Principal Diagnosis Lumbar spinal stenosis with neurogenic claudication Discharge Data Allergies Allergy/AdvReac Type Severity Reaction Status Date / Time No Known Allergies Allergy Verified 08/04/22 09:07 Consultations 08/04/22 14:20 Consult Hospitalist Routine Procedures Performed Operation Date: 08/04/22 10:05 Actual Procedures p L2-L3 Decompression, L2-S1 Fusion, Spinal Cord Monitoring(Not Applicable) - Mikhail Howell DO s L3-S1 Hardware Removal, (Not Applicable) - Mikhail Howell DO Ordered Studies 08/04/22 [place] lumbar spine 2-3V Routine Hospital Course (1) Neurogenic claudication due to lumbar spinal stenosis: Patient underwent lumbar decompression fusion tolerated well was taken to orthopedic for postop labor postop day 1 he was up and ambulating progressed to postop #2. Pain well controlled. SARAH drain decreased appropriate subsequently discharged home. Discharge orders instructions from the chart for further view. Total Time Total Time Spent Total Time Spent (In Minutes): 20 minutes Discharge Plan Discharge Items Patient Disposition: Home - Self-Care Reason For Visit: Spinal Stenosis, Lumbar Region with Neurogenic Discharge Diagnosis: Lumbar spinal stenosis with neurogenic claudication Activity: As commented below Non-emergency contact: Primary Care Provider Call non-emergency contact if: you have any medication questions Follow-up/Referrals: PCP,NO [Primary Care Provider] - Diet: Regular Addtl Attending Provider Instructions: ACTIVITY RECOMMENDATIONS: SELF CARE INSTRUCTIONS AFTER THORACIC/LUMBAR FUSIONS 1. You may walk to your tolerance. It is good exercise for your legs and back. Expect some back and intermittent leg aches and pains. 2. You may perform "counter-top" level activities (make a sandwich, abrahan with a project, etc.). 3. No bending or lifting of more than 10 pounds or back twisting of any nature (roll like a log when turning in bed). 4. You may ride in a car for 20-30 minutes at a time. No driving until after your first visit with your doctor. 5. Frequent changes of position and restricting sitting to 30 minutes at a time will help limit the amount of back spasms and stiffness you may experience. 6. You may discontinue the use of ambulatory aids (cane, crutches, etc.) once your strength and confidence allow. 7. You may area intelligence technician the shower and let water strike your incision when you arrive home at least once daily. Do not take a tub bath, sit in a hot tub or go into a swimming pool until after your first recheck in the office. SPECIAL CARE INSTRUCTIONS: VERY IMPORTANT TO READ AND REVIEW A. Your surgical incision has been closed with a cosmetic suture under the skin that will dissolve in about 6 weeks. In 14 days, you can use a pair of clean scissors and cut the suture that is left outside of the skin at the ends of your incision. 1. The small skin tapes can be removed 7 days after surgery if they have not fallen off by that point. 2. You may keep the wound open to air as much as possible to promote healing after post-op day number 5 unless told otherwise by your doctor. 3. If you think the wound looks like it is becoming infected (redness or worsening drainage) and/or you are experiencing fever, chill or worsening back pain and muscle spasms, contact the office so that we may evaluate you as soon as possible. B. Complications are uncommon, but please contact us if you have any signs or symptoms of: 1. wound infection (fever higher than 102.5 degrees F, redness, separation of wound, drainage, or increasing pain from the incision) 2. blood clots in legs (pain, swelling, redness and warmth in legs) 3. urinary tract infection (fever higher than 102.5 degrees F, burning upon urination or increased frequency of urination) 4. nerve problems (inability to walk on your toes or heels, numbness, loss of bowel or bladder control) 5. any other symptoms that concern you C. Please call the office at if you have any concerns or questions about your operation or recovery. D. No smoking! Smoking drastically decreases the chance of a solid fusion. E. Do not take any anti-inflammatory medications (Indocin, Advil, Motrin, Aspirin, Naprosyn, etc.) as these may inhibit the chance of a solid fusion. Tylenol is okay to take for pain. MANAGING PAIN AFTER SPINAL SURGERY 1. Narcotic medication is intended for short-term use and will be provided for surgical pain. Surgical pain usually lasts for a period of 4-6 weeks. Narcotic medication includes Percocet, Vicodin, Darvocet, Tylenol #3 or Lortab. 2. Longer-term pain is more appropriately treated with non-narcotic medication such as Tylenol ES. 3. Muscle spasm is not appropriately treated with narcotics. Muscle relaxers such as Soma, Flexeril or Skelaxin can be used along with Tylenol ES. 4. Remember that we all live with some "aches and pains". This is not unusual or uncommon after an injury or as we get older. a. Back pain is expected and may include muscle spasms for 4 to 6 weeks after surgery. The pain should gradually improve. If the pain worsens for no apparent reason, please contact the office. b. Intermittent leg pain may also be experienced and should not be concerned about unless it worsens for no apparent reason. If so, please contact the office. 5. We will provide appropriate medication within the normal guidelines of their prescribed use. We will also be very cautious and aware of potential abuse and extended duration of patients' medication needs. a. Pain medications are for your comfort and to assist with sleep and rest so that the tissue can heal. They are not provided in order to return to normal activity and should not be used through the day. To do so or worsening pain at night can result from ongoing tissue damage and development of tolerance to the prescribed medicine. 6. Please allow 2-3 days to process refills. Prescriptions will not be mailed but must be picked up at the office. FOLLOW UP VISIT: Keep your scheduled follow-up appointment. Any questions, please call the office at . Pending Studies at Discharge: No Stand-Alone Forms: [facility] [employer], Smoking Cessation Medications and DC Order Prescriptions: New tramadol 50 mg tablet 50 mg PO Q6H PRN (Reason: pain, moderate) Qty: 30 0RF oxycodone 5 mg tablet 5 mg PO Q6H PRN (Reason: pain, severe) Qty: 30 0RF Continued diazepam [Valium] 5 mg tablet 5 mg PO .COMPLEX Qty: 3 0RF Rx Instructions: 1 tab PO night prior to procedure; then 1 tab PO 1.5 hrs prior to procedure; then 1 tab PO 30 minutes prior to procedure if needed; sertraline [Zoloft] 50 mg tablet 150 mg PO QAM methylphenidate HCl [Ritalin] 10 mg tablet 20 mg PO BID atomoxetine [Strattera] 40 mg capsule 40 mg PO QAM clonazepam [Klonopin] 0.5 mg tablet 0.5 mg PO HS buspirone 30 mg tablet 30 mg PO BID baclofen 10 mg tablet 10 mg PO .COMPLEX PRN (Reason: spasm) Qty: 180 1RF Rx Instructions: 10 mg PO BID-TID PRN; celecoxib [Celebrex] 200 mg capsule 200 mg PO DAILY Qty: 90 1RF ranitidine HCl 150 mg Tablet 150 mg PO BID albuterol 90 mcg/actuation Aerosol 90 mcg INHALATION QID PRN (Reason: Shortness Of Breath Or Wheezing) Medical Marijuana 1 dose inhalation UD PRN (Reason: pain and anxiety ) Discharge Orders: Discharge Order (Routine); Ordered 08/06/22 Ordered By: Mikhail Howell Admission Data Admit Date/Time: 08/04/22 12:24 Attending Provider: Mikhail Howell Admit Provider: Mikhail Howell Primary Care Provider: PCP,NO Other Providers: Lois Caldwell ; Gaurang Green
--- NOTE | 2022-08-06 11:21 | Hospitalist Progress Note ---
Date of Service August 06, 2022 Assessment & Plan (1) Neurogenic claudication due to lumbar spinal stenosis: (2) GERD (gastroesophageal reflux disease): (3) Anxiety and depression: Plan Patient is a 46 yr male with H/O of anxiety and depression, GERD and ADHD had elective surgical intervention by Dr. Howell was consulted for postop medical management Neurogenic claudication due to lumbar spinal stenosis: S/P Decompression fusion L1-L4 with Dr. Howell on 08/04/22 Expected postoperative acute blood loss anemia Pain management, wound care, anticoagulation as per primary team Continue incentive spirometer Continue PT OT Continue Bowel regimen Monitor CBC - dc per ortho GERD: Continue Pepcid Anxiety and depression: Continue home medications ADHD: on Methylphenidate, Strattera DVT Px: per Primary team Code Status Full Code Admission and Anticipated Discharge Date Admission Date: August 04, 2022 Subjective Patient is seen and examined at bedside Back pain at surgical site is controlled + Flatus Denies any chest pain, dyspnea, dizziness, nausea, abdominal pain Ambulating in hallway Review of Systems Review of Systems: All systems reviewed & are unremarkable except as noted in Subjective Physical Exam Physical Exam: Vitals signs as noted above General Appearance:Moderately built and nourished, no apparent distress Head: normocephalic, Atraumatic Eyes: normal inspection, EOMI, Neck: supple, Trachea midline Respiratory/Chest: Normal breath sounds, CTA, No accessory muscle use Cardiovascular: S1, S2, No murmur Back: Surgical site in dressing, +Drain Abdomen/GI:Soft, Non tender, Bowel sounds present Extremities/Musculoskeletal:normal inspection, no edema Neurologic/Psych:AAOX3, grossly no focal neurological deficits Skin: normal color, warm Results & Data Results & Data ([facility]) Vital Signs (Past 12 Hours) Vital Signs Temp Pulse Pulse Resp BP BP Pulse Ox 08/06/22 10:44 36.7 C 120 H 81 18 112/77 126/90 100 08/06/22 07:33 36.7 C 81 18 112/77 100 O2 Del Method 08/06/22 10:44 08/06/22 07:33 Room Air Diagnostic Findings Laboratory Results WBC 8.79 K/ul (4.8-10.8) 08/06/22 06:33 RBC 3.97 M/uL (4.63-6.08) L 08/06/22 06:33 Hgb 11.8 g/dl (14.0-18.0) L 08/06/22 06:33 Hct 34.7 % (40.1-51.0) L 08/06/22 06:33 MCV 87.4 fL (80.0-100.0) 08/06/22 06:33 MCH 29.7 pg (25.0-34.0) 08/06/22 06:33 MCHC 34.0 g/dL (32.0-36.0) 08/06/22 06:33 RDW Std Deviation 42.5 fL (36.4-46.3) 08/06/22 06:33 RDW Coeff of Johanne 13.2 % (11.5-14.5) 08/06/22 06:33 Plt Count 143 K/uL (130-400) 08/06/22 06:33 MPV 11.4 fL (9.4-12.4) 08/06/22 06:33 Immature Gran % (Auto) 0.3 % 08/05/22 07:50 Neut % (Auto) 72.4 % 08/05/22 07:50 Lymph % (Auto) 17.7 % 08/05/22 07:50 Miner % (Auto) 9.2 % 08/05/22 07:50 Eos % (Auto) 0.2 % 08/05/22 07:50 Baso % (Auto) 0.2 % 08/05/22 07:50 Neut # (Auto) 7.72 K/uL (1.4-6.5) H 08/05/22 07:50 Lymph # (Auto) 1.89 K/uL (1.2-3.4) 08/05/22 07:50 Miner # (Auto) 0.98 K/uL (0.24-0.82) H 08/05/22 07:50 Eos # (Auto) 0.02 K/uL (0-0.50) 08/05/22 07:50 Baso # (Auto) 0.02 K/uL (0-0.2) 08/05/22 07:50 Immature Gran # (Auto) 0.03 K/uL (0.00-0.02) H 08/05/22 07:50 Sodium 139 mmol/L (136-145) 08/06/22 06:33 Potassium 3.8 mmol/L (3.5-5.1) 08/06/22 06:33 Chloride 105 mmol/L (98-107) 08/06/22 06:33 Carbon Dioxide 30 mmol/L (21-32) 08/06/22 06:33 Anion Gap 4 (3-11) 08/06/22 06:33 BUN 11 mg/dl (6-23) 08/06/22 06:33 Creatinine 0.75 mg/dl (0.6-1.4) 08/06/22 06:33 Est Cr Clr Drug Dosing 145.9 ml/min 08/06/22 06:33 Est GFR ( Amer) 125.7 ml/min 08/06/22 06:33 Est GFR (Non-Af Amer) 108.5 ml/min 08/06/22 06:33 BUN/Creatinine Ratio 14.7 (10-20) 08/06/22 06:33 Glucose 84 mg/dl (70-99(Fasting)) 08/06/22 06:33 Calcium 8.4 mg/dl (8.5-10.1) L 08/06/22 06:33 SARS-CoV-2, RNA, NAAT NEGATIVE (NEGATIVE) 08/04/22 08:55 Blood Type B Positive 08/04/22 08:54 Antibody Screen NEGATIVE 08/04/22 08:54 Crossmatch See Detail 08/04/22 08:54 Impressions Lumbar Spine X-Ray 08/04/22 00:00 FL lumbar spine 2-3V HISTORY: 46 years-old Male L2-L3 Decompression, L2-S1 fusion, L3-S1 hardware removal COMPARISON: 04/07/2018 TECHNIQUE: 2 spot fluoroscopic images of the lumbar spine were obtained utilizing 12 seconds fluoroscopy time FINDINGS: 4 level posterior interbody luis alberto and screw fusion hardware is noted, exact numbering is not definitive based on magnification of the film, however appears to extend from the level of L2-L5 with L5-S1 and L2-L3 discectomy. Images were submitted after the completion of the surgery. IMPRESSION: Fluoroscopic assistance as above. ACT 112: Negative or not required by law. The above report was generated using voice recognition software. It may contain grammatical, syntax or spelling errors. Electronically signed by: Mt Winkler M.D. 08/04/2022 1:01 PM Medications Administered Current Inpatient Medications Acetaminophen (Acetaminophen 500 Mg Tab) 1,000 mg PO Q8H PRN PRN Reason: MILD Pain Scale 1,2,3 & Pre PT Stop: 09/03/22 14:19 Last Admin: 08/04/22 20:51 Dose: 1,000 mg Hydrocodone Bitart/Acetaminophen (Hydrocodone/Acetamophen 5/325mg Tab) 1 tab PO Q6H PRN PRN Reason: Pain Stop: 08/19/22 10:37 Last Admin: 08/06/22 07:48 Dose: 1 tab Al Hydrox/Mg Hydrox/Simethicone (Aluminum/Magnesium Susp 30 Ml Udc) 30 ml PO Q6H PRN PRN Reason: Dyspepsia Stop: 09/03/22 14:19 Albuterol (Albuterol Hfa 8 Gm Inhaler) 2 puffs INH QID PRN PRN Reason: Shortness Of Breath Or Wheezing Stop: 09/03/22 14:24 Atomoxetine HCl (Atomoxetine Hcl 40 Mg Capsule) 40 mg PO QAM [facility] Stop: 09/04/22 08:59 Last Admin: 08/06/22 07:49 Dose: 40 mg Baclofen (Baclofen 10 Mg Tab) 10 mg PO Q8 PRN PRN Reason: Muscle Spasm Stop: 09/03/22 14:19 Bisacodyl (Bisacodyl 10 Mg Supp) 10 mg CO DAILY PRN PRN Reason: Constipation Stop: 09/03/22 14:19 Buspirone HCl (Buspirone 15 Mg Tab) 30 mg PO BID [facility] Stop: 09/03/22 20:59 Last Admin: 08/06/22 07:49 Dose: 30 mg Clonazepam (Clonazepam 0.5 Mg Tab) 0.5 mg PO HS [facility] Stop: 09/03/22 20:59 Last Admin: 08/05/22 20:42 Dose: 0.5 mg Diphenhydramine HCl (Diphenhydramine Capsule 25 Mg Cap) 25 mg PO Q6H PRN PRN Reason: Allergic Rhinitis/Insomnia Stop: 09/03/22 14:19 Last Admin: 08/04/22 23:30 Dose: 25 mg Famotidine (Famotidine 20 Mg Tab) 20 mg PO BID [facility] Stop: 09/03/22 20:59 Last Admin: 08/06/22 07:49 Dose: 20 mg Hydromorphone HCl (Hydromorphone Inj 0.5 Mg/0.5 Ml Syr) 0.5 mg IV Q3H PRN PRN Reason: MODERATE Pain (Scale 4,5,6) & Pre PT Stop: 08/18/22 14:19 Last Admin: 08/05/22 17:57 Dose: 0.5 mg Hydromorphone HCl (Hydromorphone Inj 1 Mg/Ml Syringe) 1 mg IV Q3H PRN PRN Reason: SEVERE Pain (Scale 7,8,9,10) Stop: 08/18/22 14:19 Last Admin: 08/05/22 07:27 Dose: 1 mg Hydroxyzine HCl (Hydroxyzine Hcl 25 Mg Tab) 25 mg PO Q8H PRN PRN Reason: Anxiety Stop: 09/03/22 14:19 Promethazine HCl 12.5 mg/ (Sodium Chloride) 50.5 mls @ 202 mls/hr IV Q6H PRN PRN Reason: Nausea &/or Vomiting Stop: 09/03/22 14:19 Lorazepam 0.5 mg/ Syringe 0.5 mls @ 2 mls/min IV Q8H PRN PRN Reason: Sedation/Anxiety Stop: 09/03/22 14:19 Dexamethasone 6 mg/ Syringe 1.5 mls @ 1 mls/min IV DAILY [facility] Stop: 08/07/22 09:02 Last Admin: 08/06/22 07:49 Dose: 1 mls/min Influenza Virus Vaccine Quadrival (Do Not Administer Flu Vaccine) 1 each N/A PRN PRN PRN Reason: Notification Stop: 09/03/22 14:19 Lorazepam (Lorazepam 0.5 Mg Tab) 0.5 mg PO Q8H PRN PRN Reason: Sedation/Anxiety Stop: 09/03/22 14:19 Magnesium Hydroxide (Magnesium Hydroxide Susp 30 Ml Udc) 30 ml PO Q24H PRN PRN Reason: Constipation Stop: 09/03/22 14:19 Methylphenidate HCl (Methylphenidate Hcl 10 Mg Tablet) 20 mg PO BID@0900,1430 SOLE Stop: 08/18/22 20:59 Last Admin: 08/06/22 07:48 Dose: 20 mg Metoclopramide HCl (Metoclopramide Hcl Inj 5 Mg/Ml 2 Ml Vial) 10 mg IV Q6H PRN PRN Reason: Nausea &/or Vomiting Stop: 09/03/22 14:19 Miscellaneous Medication (Medical Marijuana) 1 dose INH UD PRN PRN Reason: pain and anxiety Stop: 09/03/22 14:39 Naloxone HCl (Naloxone Hcl 0.4 Mg/1 Ml Vial/Carp) 0.1 mg IV Q5M PRN PRN Reason: Oversedation/Resp depression Stop: 09/03/22 14:19 Ondansetron HCl (Ondansetron Inj 2 Mg/Ml 2 Ml Vial) 4 mg IV Q6H PRN PRN Reason: Nausea &/or Vomiting Stop: 09/03/22 14:19 Ondansetron HCl (Ondansetron 4 Mg Od Tab) 4 mg PO Q6H PRN PRN Reason: Nausea Stop: 09/03/22 14:19 Pneumococcal Polyvalent Vaccine (Do Not Administer Pneumococcal Vaccine) 1 each N/A PRN PRN PRN Reason: Notification Stop: 09/03/22 14:19 Senna/Docusate Sodium (Docusate Sodium/Senna 50/8.6mg Tab) 2 tab PO HS [facility] Stop: 09/03/22 20:59 Last Admin: 08/05/22 20:40 Dose: Not Given Sertraline HCl (Sertraline Hcl 50 Mg Tablet) 150 mg PO QAM [facility] Stop: 09/04/22 08:59 Last Admin: 08/06/22 07:48 Dose: 150 mg Sodium Biphosphate/Sodium Phosphate (Sod Phosphate/Sod Biphosphate Enema 132 Ml Btl) 132 ml CO ONE PRN PRN Reason: Constipation Stop: 09/03/22 14:19 Tramadol HCl (Tramadol Hcl 50 Mg Tablet) 50 - 100 mg PO Q4H PRN PRN Reason: Moderate-Severe pain & Pre PT Stop: 09/03/22 14:19 Last Admin: 08/06/22 04:45 Dose: 50 mg
== END 2022-08-06 13:37 | disposition home or self-care (01) | DRG 454 ==
LOC: ASU 08:33 → 3E 12:24

== ENCOUNTER 2025-03-15 07:24 | Inpatient (IN) ==
--- NOTE | 2025-02-22 12:50 | PAT Medication Instructions ---
Medication Instructions Date of Service February 22, 2025 Home Medications Enclomiphene 25 mg PO 2XWK HRT Saccharomyces boulardii 250 mg capsule (Florastor) 250 mg PO QAM albuterol sulfate 90 mcg/actuation aerosol inhaler 1 inh inhalation QID PRN anastrozole 0.5 mg PO 2XWK HRT ascorbic acid (vitamin C) 250 mg tablet (Vitamin C) 250 mg PO QAM buspirone 30 mg tablet 30 mg PO BID celecoxib 200 mg capsule (Celebrex) 200 mg PO BID cholecalciferol (vitamin D3) 125 mcg (5,000 unit) tablet (Vitamin D3) 125 mcg PO QAM cyanocobalamin (vitamin B-12) 1,000 mcg tablet (Vitamin B-12) 1,000 mcg PO QAM danazol 75 mg PO QAM HRT gabapentin 300 mg capsule 300 mg PO HS krill aao-zx0-ssq-yaa-dm6-ybo-astax 1,500 mg-165 mg-67.5 mg capsule (Krill Oil ([place] 3 and 6)) 2 cap PO QAM lansoprazole 15 mg capsule,delayed release 15 mg PO QAM levocetirizine 5 mg tablet (Xyzal) 5 mg PO HS melatonin 10 mg tablet 10 mg PO HS PRN vunvwtiq-te-dwxkx 300 mcg-K 60 mcg-lycop 600 mcg-lutein 300 mcg tablet (Men 50 Plus Multivitamin) 1 tab PO QAM prazosin 1 mg capsule 1 mg PO HS propranolol 20 mg tablet 20 mg PO TID PRN testosterone cypionate 200 mg/mL intramuscular kit 0 mg subcut 2XWK tirzepatide (weight loss) 10 mg/0.5 mL subcutaneous pen injector (Zepbound) 10 mg subcut WK STOP 7 days before surgery tirzepatide (weight loss) 10 mg/0.5 mL subcutaneous pen injector (Zepbound) 10 mg subcut WK ASK your surgeon for instructions celecoxib 200 mg capsule (Celebrex) 200 mg PO BID ASK your prescriber and surgeon anastrozole 0.5 mg PO 2XWK HRT danazol 75 mg PO QAM HRT Enclomiphene 25 mg PO 2XWK HRT testosterone cypionate 200 mg/mL intramuscular kit 0 mg subcut 2XWK STOP taking 2 weeks before surgery (or as soon as possible if surgery is within 2 weeks) krill qkn-[id number]-cje-quv-zh5-ody-astax 1,500 mg-165 mg-67.5 mg capsule (Krill Oil ([place] 3 and 6)) 2 cap PO QAM DO NOT take the morning of surgery Saccharomyces boulardii 250 mg capsule (Florastor) 250 mg PO QAM ascorbic acid (vitamin C) 250 mg tablet (Vitamin C) 250 mg PO QAM cholecalciferol (vitamin D3) 125 mcg (5,000 unit) tablet (Vitamin D3) 125 mcg PO QAM cyanocobalamin (vitamin B-12) 1,000 mcg tablet (Vitamin B-12) 1,000 mcg PO QAM ppcbwvrs-eb-srlzp 300 mcg-K 60 mcg-lycop 600 mcg-lutein 300 mcg tablet (Men 50 Plus Multivitamin) 1 tab PO QAM Take morning of surgery With a small sip of water, OTHERWISE NOTHING TO EAT OR DRINK AFTER MIDNIGHT: albuterol sulfate 90 mcg/actuation aerosol inhaler 1 inh inhalation QID PRN(use if needed; please bring with you to hospital day of surgery if possible) buspirone 30 mg tablet 30 mg PO BID lansoprazole 15 mg capsule,delayed release 15 mg PO QAM propranolol 20 mg tablet 20 mg PO TID PRN(if needed) Take evening before surgery albuterol sulfate 90 mcg/actuation aerosol inhaler 1 inh inhalation QID PRN(if needed) buspirone 30 mg tablet 30 mg PO BID gabapentin 300 mg capsule 300 mg PO HS levocetirizine 5 mg tablet (Xyzal) 5 mg PO HS melatonin 10 mg tablet 10 mg PO HS PRN(if needed) prazosin 1 mg capsule 1 mg PO HS propranolol 20 mg tablet 20 mg PO TID PRN(if needed) Other Notes If you have any questions please call us at [phone] or [phone] or [phone] or [phone]
--- NOTE | 2025-03-01 11:15 | Anesthesiology Consultation ---
Date of Service March 01, 2025 Assessment & Plan (1) Encounter for pre-operative examination: - check BSG am DOS. - awaiting surgeon ordered 03/08 medical clearance, Hugo HUDSON. - tirzepatide instructions: Patient informed at PAT visit to stop 7 days prior to surgery- voiced understanding. Chart Review Chart Review: Pending: Refer to Additional Notes / Consult section and Patient seen in Pre Admission Testing Teaching & Discussion Pre-Anesthesia Teaching/Discussion Notes: Instructed NPO after midnight before surgery, except medications with 15 cc of water. Medication instructions provided according to the [facility] guidelines. History Surgery Operation Date: 03/15/25 07:45 Proposed Procedures p L2-S1 Exploration Fusion, L1-L2 Decompression, T12-L2 Fusion, Spinal Cord Monitoring - Mikhail Howell DO Height/Weight Height: 5 ft 11 in Weight: 101.7 kg Allergies Allergy/AdvReac Type Severity Reaction Status Date / Time No Known Drug Allergies Allergy Verified 02/20/25 15:00 gluten AdvReac Intermediate gluten Verified 02/20/25 15:00 sensitivity - gi upset/sweating/headache Medications Home Medications Medication Instructions Recorded Confirmed Last Taken Enclomiphene 25 mg PO 2XWK HRT 02/20/25 02/20/25 Unknown Saccharomyces boulardii 250 mg 250 mg PO QAM 02/20/25 02/20/25 Unknown capsule (Florastor) albuterol sulfate 90 mcg/actuation 1 inh inhalation QID PRN sob 02/20/25 02/20/25 Unknown aerosol inhaler anastrozole 0.5 mg PO 2XWK HRT 02/20/25 02/20/25 Unknown ascorbic acid (vitamin C) 250 mg 250 mg PO QAM 02/20/25 02/20/25 Unknown tablet (Vitamin C) buspirone 30 mg tablet 30 mg PO BID 02/20/25 02/20/25 Unknown celecoxib 200 mg capsule (Celebrex) 200 mg PO BID 02/20/25 02/20/25 Unknown cholecalciferol (vitamin D3) 125 125 mcg PO QAM 02/20/25 02/20/25 Unknown mcg (5,000 unit) tablet (Vitamin D3) cyanocobalamin (vitamin B-12) 1,000 mcg PO QAM 02/20/25 02/20/25 Unknown 1,000 mcg tablet (Vitamin B-12) danazol 75 mg PO QAM HRT 02/20/25 02/20/25 Unknown gabapentin 300 mg capsule 300 mg PO HS 02/20/25 02/20/25 Unknown krill 2 cap PO QAM 02/20/25 02/20/25 Unknown kge-zl9-ehh-zjv-xj5-qkn-astax 1,500 mg-165 mg-67.5 mg capsule (Krill Oil ([place] 3 and 6)) lansoprazole 15 mg capsule,delayed 15 mg PO QAM 02/20/25 02/20/25 Unknown release levocetirizine 5 mg tablet (Xyzal) 5 mg PO HS 02/20/25 02/20/25 Unknown melatonin 10 mg tablet 10 mg PO HS PRN Sleep 02/20/25 02/20/25 Unknown gzrplxtb-bh-otqgv 300 mcg-K 60 1 tab PO QAM 02/20/25 02/20/25 Unknown mcg-lycop 600 mcg-lutein 300 mcg tablet (Men 50 Plus Multivitamin) propranolol 20 mg tablet 20 mg PO TID PRN anxiety/ptsd 02/20/25 02/20/25 Unknown testosterone cypionate 200 mg/mL 0 mg subcut 2XWK 02/20/25 02/20/25 Unknown intramuscular kit tirzepatide (weight loss) 10 10 mg subcut WK 02/20/25 02/20/25 02/20/25 mg/0.5 mL subcutaneous pen injector (Zepbound) Past Medical History Medical History (Updated 03/01/25 @ 11:37 by Demetria Espinosa PA-C) Anxiety Chronic back pain Depression Elevated hemoglobin A1c Fatty liver GERD (gastroesophageal reflux disease) controlled, stable per pt History of deviated nasal septum Hx of bronchitis last had ~2009 - uses albuterol PRN. last used inhaler 02/18/25 Low testosterone following with [facility] for HRT. Lumbar radiculopathy, chronic Obesity Post traumatic stress disorder Renal cyst discharged by urology not needing further f/u per patient Patient denies h/o stroke, seizures, heart attack, heart failure, DM, HTN, blood clots/DVTs or blood transfusions. Exercise / Class Metabolic Activity II 4-5 Yardwork/Stairs/Walk up hill (denies chest discomfort or shortness of breath with one flight of stairs) Past Family History Family History Other No family history of adverse response to anesthesia Past Surgical History Surgical History (Updated 03/01/25 @ 11:38 by Demetria Espinosa PA-C) H/O shoulder surgery bilateral shoulder arthroscopy History of esophagogastroduodenoscopy (EGD) History of lumbar fusion x4 total lumbar fusion -> S1-L3 area Hx of arthroscopic knee surgery right Hx of colonoscopy Hx of endoscopic sinus surgery x3 Hx of fusion of cervical spine C6-C7 fusion - Full ROM Nausea and vomiting after administration of anesthetic agent denies needing scop patch, does well with IV pre-dosing Past Anesthesia History No Hx of Anesthesia Complications and No Family Hx of Anesthesia Complications History of PONV No Hx of Motion Sickness and History of PONV (denies needing scop patch, does well with IV predosing) Social History Smoking Status: Former smoker tobacco type: cigarettes Do You Dip or Chew Tobacco: No Smoking End Date: 2019 Hx Alcohol Use: Yes alcohol intake frequency: holidays/special occasions only Hx Substance Use: Yes (medical marijuana prn- advised) substance use type: marijuana Last Used Substance Other:: 02/18/25 (advised on policy) Review of Systems Occasional snoring, denies witnessed apneas. Patient denies chest pain, shortness of breath, dyspnea on exertion, fever, chills, cough, wheezing, or palpitations. Physical Exam Vital Signs Vitals BP 114/82 P 75 TEMP 98.3 SP02 97% on RA RESP 18 Physical Patient resting comfortably in chair in no acute distress, alert and oriented, responding appropriately throughout visit Full cervical extension range of motion without pain TMD 3.5 finger breadths Mallampati Score 3 Dentition: intact, denies chipped or loose teeth, caps/crowns, implants or bridges Lungs: normal respiratory effort. Good air movement, clear throughout to auscultation, no adventitious breath sounds Cardiac: regular rate and rhythm, no murmurs noted Carotid arteries: negative bruit bilat Lab Results Anesthesia Preop Results Results Anesthesia Widget: WBC 5.34 K/ul (4.8-10.8) 03/01/25 Hgb 17.4 g/dl (14.0-18.0) 03/01/25 Hct 51.8 % (42.0-52.0) 03/01/25 Plt 182 K/uL (130-400) 03/01/25 Na 139 mmol/L (136-145) 03/01/25 K 4.6 mmol/L (3.5-5.1) 03/01/25 Cl 105 mmol/L (98-107) 03/01/25 CO2 29 mmol/L (21-32) 03/01/25 BUN 18 mg/dl (6-23) 03/01/25 Creat 1.23 mg/dl (0.6-1.4) 03/01/25 Glucose Level 78 mg/dl (70-99(Fasting)) 03/01/25 PT 11.6 Seconds (9.0-12.0) 03/01/25 PTT 26 Seconds (21-31) 03/01/25 INR 1.1 (0.9-1.1) 03/01/25 HA1c 5.1 % (4.5-5.6) 03/01/25 Urine Color Yellow 03/01/25 Urine Appearance Clear (Clear) 03/01/25 Urine pH 5.5 (4.5-7.5) 03/01/25 Urine Specific Noonan 1.016 (1.000-1.030) 03/01/25 Urine Protein Negative (Negative) 03/01/25 Urine Glucose (UA) Negative (Negative) 03/01/25 Urine Ketones Trace (Negative) H 03/01/25 Urine Blood Negative (Negative) 03/01/25 Urine Nitrite Negative (Negative) 03/01/25 Urine Bilirubin Negative (Negative) 03/01/25 Urine Urobilinogen Negative (Negative) 03/01/25 Urine Leukocyte Esterase Trace (Negative) H 03/01/25 Urine WBC (Auto) 0-5 /hpf (0-5) 03/01/25 Urine RBC (Auto) 0-2 /hpf (0-2) 03/01/25 Urine Hyaline Casts (Auto) 0-2 /lpf (0-2) 03/01/25 Urine Epithelial Cells (Auto) 0-2 /hpf (0-2) 03/01/25 Urine Bacteria (Auto) None Seen (None Seen) 03/01/25 Blood Type B Positive 03/01/25 Antibody Screen NEGATIVE 03/01/25 Testing Electrocardiogram Date: 03/01/25 NSR, rate 69 bpm Chest X-Ray Date: 03/01/25 No acute findings. Echocardiogram Date: 04/25/22 EF 55-60% No regional wall motion abnormalities Mildly dilated ascending aorta 3.7 cm Grade I diastolic dysfunction Stress Test Date: 04/23/22 MPHR 56% Normal myocardial perfusion imaging LVEF 66%
[~2025-03-15 07:24] MED LIST changes: -ACETAMINOPHEN 500 MG TAB PO SCH; -CeleBREX 200 MG CAP PO SCH; +DEXAMETHASONE SOD INJ 4 MG/ML VIAL ONE; -GABAPENTIN 900 MG DOSE PO SCH; +KETAMINE HCL 10MG/ML SYR ONE; +LIDOCAINE 2% 2 ML VIAL/AMP(20MG/ML) INFIL ONE; -LR 15ML/HR IV SCH; +MIDAZOLAM HCL 1 MG/ML 2ML VIAL ONE; +ONDANSETRON INJ 2 MG/ML 2 ML VIAL ONE; +PROPOFOL IV EMULSION 10 MG/ML 20 ML VIAL IV ONE; +ROCURONIUM BROMIDE 10 MG/ML 5 ML VIAL IV ONE; +SUGAMMADEX SODIUM 200 MG/2 ML VIAL IV ONE; -ceFAZolin 2000MG 2,000 MG/15 ML SYR IV SCH
[2025-03-15] MEDS: ACETAMINOPHEN 500 MG TAB PO SCH (07:52)
[2025-03-15] MEDS: GABAPENTIN 900 MG DOSE PO SCH (07:53)
[2025-03-15] MEDS: CeleBREX 200 MG CAP PO SCH (07:53)
[2025-03-15] MEDS: LR 15ML/HR IV SCH (07:54)
[2025-03-15] MEDS: LR 60ML/HR IV SCH (07:54)
[2025-03-15] MEDS ORDERED: ATROPINE SULFATE 0.1 MG/ML 10ML SYR IV PRN (08:45)
[2025-03-15] MEDS ORDERED: DROPERIDOL 5 MG/2 ML VIAL IV PRN (08:45)
[2025-03-15] MEDS ORDERED: PROMETHAZINE HCL 6.25 MG in SODIUM CHLORIDE 0.9% 50 ML IV PRN (08:45)
--- NOTE | 2025-03-15 08:54 | History & Physical Bridge Note ---
Date of Service March 15, 2025 History & Physical Bridge Note I have examined the patient, reviewed the History & Physical and in the interval since the performance of the History & Physical I have noted the following changes of clinical significance: no changes noted
--- NOTE | 2025-03-15 08:56 | History & Physical Report ---
Date of Service March 15, 2025 Assessment & Plan (1) Neurogenic claudication due to lumbar spinal stenosis: Plan: Exploration of fusion L2-S1, decompression L1-L2, fusion T12-L2 History of Present Illness Chief Complaint: Back and leg pain Primary Care Provider: JUHI Reynaga This is a 49-year-old male who presents with chronic consistent back and leg pain and failed course of nonoperative care is here for surgical invention. Allergies Allergy/AdvReac Type Severity Reaction Status Date / Time No Known Drug Allergies Allergy Verified 03/15/25 07:41 gluten AdvReac Intermediate gluten Verified 03/15/25 07:41 sensitivity - gi upset/sweating/headache Home Medications Medication Instructions Recorded Confirmed Type Enclomiphene 25 mg PO 2XWK HRT 02/20/25 03/15/25 History Saccharomyces boulardii 250 mg 250 mg PO QAM 02/20/25 03/15/25 History capsule (Florastor) albuterol sulfate 90 mcg/actuation 1 inh inhalation QID PRN sob 02/20/25 03/15/25 History aerosol inhaler anastrozole 0.5 mg PO 2XWK HRT 02/20/25 03/15/25 History ascorbic acid (vitamin C) 250 mg 250 mg PO QAM 02/20/25 03/15/25 History tablet (Vitamin C) buspirone 30 mg tablet 30 mg PO BID 02/20/25 03/15/25 History celecoxib 200 mg capsule (Celebrex) 200 mg PO BID 02/20/25 03/15/25 History cholecalciferol (vitamin D3) 125 125 mcg PO QAM 02/20/25 03/15/25 History mcg (5,000 unit) tablet (Vitamin D3) cyanocobalamin (vitamin B-12) 1,000 mcg PO QAM 02/20/25 03/15/25 History 1,000 mcg tablet (Vitamin B-12) danazol 75 mg PO QAM HRT 02/20/25 03/15/25 History gabapentin 300 mg capsule 300 mg PO HS 02/20/25 03/15/25 History krill 2 cap PO QAM 02/20/25 03/15/25 History kid-qw1-ler-hgb-ly3-ana-astax 1,500 mg-165 mg-67.5 mg capsule (Krill Oil ([place] 3 and 6)) lansoprazole 15 mg capsule,delayed 15 mg PO QAM 02/20/25 03/15/25 History release levocetirizine 5 mg tablet (Xyzal) 5 mg PO HS 02/20/25 03/15/25 History melatonin 10 mg tablet 10 mg PO HS PRN Sleep 02/20/25 03/15/25 History zzmdrqwp-ux-uofyd 300 mcg-K 60 1 tab PO QAM 02/20/25 03/15/25 History mcg-lycop 600 mcg-lutein 300 mcg tablet (Men 50 Plus Multivitamin) propranolol 20 mg tablet 20 mg PO TID PRN anxiety/ptsd 02/20/25 03/15/25 History testosterone cypionate 200 mg/mL 0 mg subcut 2XWK 02/20/25 03/15/25 History intramuscular kit tirzepatide (weight loss) 10 10 mg subcut WK 02/20/25 02/20/25 History mg/0.5 mL subcutaneous pen injector (Zepbound) Past Med/Surg History Problem List Neurogenic claudication due to lumbar spinal stenosis Encounter for pre-operative examination GERD (gastroesophageal reflux disease) Anxiety and depression Cervical dystonia (Chronic) Cervical postlaminectomy syndrome (Chronic) Lumbar radiculitis (Chronic) Lumbar postlaminectomy syndrome (Chronic) Lumbar facet joint syndrome (Chronic) Cervical facet syndrome (Chronic) Myofascial pain (Chronic) Cervicalgia (Chronic) Medical History Elevated hemoglobin A1c Obesity Low testosterone following with [facility] for HRT. Lumbar radiculopathy, chronic Post traumatic stress disorder Chronic back pain Hx of bronchitis last had ~2009 - uses albuterol PRN. last used inhaler 02/18/25 GERD (gastroesophageal reflux disease) controlled, stable per pt Depression Anxiety History of deviated nasal septum Fatty liver Renal cyst discharged by urology not needing further f/u per patient Surgical History History of lumbar fusion x4 total lumbar fusion -> S1-L3 area Hx of fusion of cervical spine C6-C7 fusion - Full ROM Hx of colonoscopy History of esophagogastroduodenoscopy (EGD) Hx of arthroscopic knee surgery right Hx of endoscopic sinus surgery x3 Nausea and vomiting after administration of anesthetic agent denies needing scop patch, does well with IV pre-dosing H/O shoulder surgery bilateral shoulder arthroscopy Family History Other No family history of adverse response to anesthesia Social History Smoking Status: Former smoker Tobacco Type: Cigarettes Smoking End Date: 2019; Second Hand Exposure: No; Do You Dip or Chew Tobacco: No; Tobacco Cessation Education Requested by Patient: No Hx Alcohol Use: Yes Hx Substance Use: Yes (medical marijuana prn- advised) Last Used Substance Other:: 02/18/25 (advised on policy) Preferred Language: Citizen Of [place] Communication Ability: Effective Visual Impairment: No Limitations Hearing Ability: Normal Applications Programmer Analyst Required: No Beliefs That Will Affect Care: None marital status: Current Living Situation: Spouse current occupational status: retired Other Information That Helps Us Care for You: No Feels Safe at Home: Yes Safety Concerns: Feels Safe At This Time Assistive Devices: Cane and Hearing Aid - Left Assistive Devices Comment: cane prn Physical Exam Physical Exam: Patient is alert and oriented Heart regular rhythm lungs clear Results & Data Results & Data Vital Signs (Past 12 Hours) Vital Signs Temp Pulse Resp BP Pulse Ox O2 Del Method 03/15/25 07:44 36.5 C 74 18 115/75 98 Room Air
[2025-03-15] MEDS: SCOPOLAMINE 1 MG/72 HR TDSY PATCH TD STA (09:05)
[2025-03-15] MEDS ORDERED: REMIFENTANIL HCL 1 MG VIAL IV ONE (09:12)
[2025-03-15] MEDS: BUPIVACAINE/EPINEPHRINE 0.25% 1:200,000 30 ML VIAL ONE (10:03)
[2025-03-15] MEDS: ceFAZolin 330 MG/ML 1 GM VIAL ONE (11:03)
[2025-03-15] MEDS: FLOSEAL HEMOSTATIC MATRIX 10ML TOP ONE (11:08)
--- NOTE | 2025-03-15 11:23 | Operative Report ---
Post Operative Report Pre & Post Diagnosis Operation Date: 03/15/25 09:05 Pre-Op Diagnosis: #1 lumbar spondylosis with radiculopathy #2 neurogenic claudication due to lumbar spinal stenosis Post-Op Diagnosis: Same I identified the patient and participated in the time-out.: Yes Procedure Operation Date: 03/15/25 09:05 Actual Procedures #1 lumbar decompression with bilateral medial facetectomies and foraminotomies T12-L1 L1-L2. #2 posterior spinal fusion T11-L2. #3 placed posterior instrumentation T11-L1 with connectors at L2-L3. #4 interbody fusion L1-L2. #5 placement Spira 8 x 22 mm L1-L2. #6 placement locally harvested morselized graft and posterior gutters. #7 please infuse collagen sponge, with Koros in the posterior lateral gutters and os design interbody space. #8 application of pressure wrap of the exposed dura. Surgeon Mikhail Howell, DO Hedis Abstractor Tiffany Hurtado Estimated Blood Loss 250 Findings Consistent with Post-Op Diagnosis Specimens None Indications This is a 49-year-old male presents publish diagnosis after failed course of nonoperative care is here for surgical invention. Description of Procedure Patient was met with identified informed consent obtained. Patient was then taken to the operative suite underwent intubation placed in a prone position on the Remias table with the chest pad and hip bolsters. All bony prominences well-padded eyes inspected to ensure no external pressure placed upon them. This point the thoracolumbar spine was prepped and draped in a sterile fashion. Sharp dissection with the assistance of Bovie cautery performed down to exposing the lamina and transverse processes of the T8 11 T12-L1 and instrumentation at L2-L3. I then performed a complete laminectomy of L1 with bilateral medial facetectomies and foraminotomies addressing all neural compression. This followed by partial laminectomy of T12 with bilateral medial facetectomies to address all subarticular stenosis. Pedicle screws were then placed in T11 T12- L1 bilaterally with assistance of fluoroscopy and connectors attached to the L2- L3 luis alberto. By way of transforaminal approach on the left a complete discectomy of L1-L2 was performed endplates created to subcortical bleeding bone and an 8 x 22 mm spiral cage filled with os design bone graft tapped in position. The proper size rods were then contoured and locked in position bilaterally. The transverse processes of T11-T12 L1-L2 burred to subcortical bleeding bone. Infuse collagen sponge combined with Koros and local autograft placed in posterolateral gutters. Versa wrap placed over the exposed dura. 15 round SARAH drain inserted. The incision was then closed with 1 Vicryl the fascia 2-0 Vicryl subcutaneously and 4 Monocryl for final skin closure. Steri-Strips sterile dressing placed. Patient waken taken to PACU stable condition. Please note Tiffany Hurtado was present throughout the procedure involved the patient positioning complex portion of the surgery and final skin closure. Im ordering 10 grams of Collagen Powder ([facility] A6010 Primary Dressing) and 10 bordered super absorbent ([facility] A6196 Secondary Dressing) to treat an incision wound that was caused by a spine procedure. The incision is approximately 2 cm(W) x 2 cm(L) down to the spinal column and epidural space 2 cm (D) in size and is a full thickness wound showing no signs of infection. Collagen comes in 1 gram packets so 10 packets were ordered. Given the size of the wound, with moderate exudate I chose to order a 10 day supply. The patient will be provided instructions for proper application of the collagen wound kit. The patient will be asked to apply the collagen powder daily and then cover it with sterile dressings dispensed. Collagen was selected as I expect the collagen to attract monocytes and fibroblasts, act as a sacrificial substrate for MMPs, and ultimately proved a matrix for tissue and vessel growth. The collagen will act as a primary dressing in this scenario. It is medically necessary for proper healing of these wounds to improve bioavailability and contact with each wound surface, this is also to help prevent infection of wounds and promote healing ultimately leading to a better healing outcome and limit the risk of infection. I attest to the content of the Intraoperative Record and any orders documented therein. Any exceptions are noted below.
[2025-03-15] MEDS: HYDROmorphone INJ 2 MG/ML SYR/VIAL IV PRN (12:08)
--- NOTE | 2025-03-15 12:36 | Fluoroscopy Report ---
FL lumbar spine 2-3V CLINICAL HISTORY: L2-S1 EXPLORATION FUSION L1-L2 DECOMP AND T12-L2 FUSION COMPARISON STUDY: None pertinent FLUOROSCOPY TIME: 21 seconds FLUOROSCOPY IMAGES: 2 EXPOSURE DOSE: 17.53 mGy FINDINGS: Fluoroscopic guidance provided for spinal decompression and fusion. Please refer to the ope rative report for evaluation based upon real-time imaging observation. IMPRESSION: Fluoroscopic guidance provided as described ACT 112: Negative or not required by law. Electronically signed by: Juana Chinchilla M.D. 03/15/2025 12:35 PM
[2025-03-15] MEDS ORDERED: HYDROmorphone INJ 1 MG/ML SYRINGE IV PRN (12:47)
[2025-03-15] MEDS ORDERED: SOD PHOSPHATE/SOD BIPHOSPHATE ENEMA 132 ML BTL PR PRN (12:47)
[2025-03-15] MEDS ORDERED: HYDROmorphone INJ 0.5 MG/0.5 ML SYR IV PRN (12:47)
[2025-03-15] MEDS ORDERED: diphenhydrAMINE Capsule 25 MG CAP PO PRN (12:47)
[2025-03-15] MEDS ORDERED: ALBUTEROL HFA 8 GM INHALER INH PRN (12:47)
[2025-03-15] MEDS ORDERED: DO NOT ADMINISTER FLU VACCINE PRN (12:47)
[2025-03-15] MEDS ORDERED: FAMOTIDINE 20 MG TAB PO PRN (12:47)
[2025-03-15] MEDS ORDERED: ONDANSETRON 4 MG OD TAB PO PRN (12:47)
[2025-03-15] MEDS ORDERED: ALUMINUM/MAGNESIUM SUSP 30 ML UDC PO PRN (12:47)
[2025-03-15] MEDS ORDERED: DO NOT ADMINISTER PNEUMOCOCCAL VACCINE PRN (12:47)
[2025-03-15] MEDS ORDERED: ONDANSETRON INJ 2 MG/ML 2 ML VIAL IV PRN (12:47)
[2025-03-15] MEDS ORDERED: METOCLOPRAMIDE HCL INJ 5 MG/ML 2 ML VIAL IV PRN (12:47)
[2025-03-15] MEDS ORDERED: MAGNESIUM HYDROXIDE SUSP 30 ML UDC PO PRN (12:47)
[2025-03-15] MEDS ORDERED: LORazepam 0.5 MG TAB PO PRN (12:47)
[2025-03-15] MEDS ORDERED: NALOXONE HCL 0.4 MG/1 ML VIAL/CARP IV PRN (12:47)
[2025-03-15] MEDS ORDERED: PROMETHAZINE 12.5 MG/50.5 ML BAG IV PRN (12:47)
[2025-03-15] MEDS ORDERED: ACETAMINOPHEN 1,000 MG/100 ML VIAL IV PRN (12:47)
[2025-03-15] MEDS ORDERED: ACETAMINOPHEN 500 MG TAB PO PRN (12:47)
[2025-03-15] MEDS ORDERED: MELATONIN 3 MG TAB PO PRN (13:19)
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
--- NOTE | 2025-03-15 15:27 | Anesthesiology Progress Note ---
Date of Service March 15, 2025 Anesthesia Post Procedure Vital Signs Vital Signs: Temp Pulse Pulse Resp BP Pulse Ox O2 Del Method 03/15/25 15:03 36.8 C 102 H 15 105/68 92 Room Air 03/15/25 13:50 36.6 C 88 16 114/70 95 Room Air 03/15/25 13:20 36.5 C 81 14 115/72 96 Room Air 03/15/25 12:50 36.6 C 75 14 111/73 96 Room Air 03/15/25 12:35 36.7 C 83 12 109/77 93 Room Air 03/15/25 12:25 75 13 119/73 92 Room Air 03/15/25 12:15 87 19 129/83 95 Room Air 03/15/25 12:05 74 12 114/78 100 Nasal Cannula 03/15/25 11:55 77 17 118/78 98 Nasal Cannula 03/15/25 11:46 36.2 C L 82 22 129/75 96 Nasal Cannula 03/15/25 07:44 36.5 C 74 18 115/75 98 Room Air O2 Flow Rate 03/15/25 15:03 03/15/25 13:50 03/15/25 13:20 03/15/25 12:50 03/15/25 12:35 03/15/25 12:25 03/15/25 12:15 03/15/25 12:05 2 03/15/25 11:55 2 03/15/25 11:46 2 03/15/25 07:44 Pain Intensity Back: Pain Intensity: 4 Transfer of Care Handoff Completed per policy Notes Mental Status: alert / awake / arousable and participated in evaluation Nausea / Vomiting: adequately controlled Pain: adequately controlled Airway Patency, RR, SpO2: stable & adequate BP & HR: stable & adequate Hydration State: stable & adequate Anesthetic Complications: no major complications apparent and Pt Satisfied with anesthetic care
[2025-03-15] MEDS: CHECK SCOPOLAMINE PATCH PLACEMENT SCH (15:53)
[2025-03-15] MEDS: CETIRIZINE HCL 10 MG TABLET PO SCH (21:12)
[2025-03-15] MEDS: GABAPENTIN 300 MG CAP PO SCH (21:13)
[2025-03-15] MEDS: PROPRANOLOL HCL 20 MG TAB PO PRN (21:13)
[2025-03-15] MEDS: DOCUSATE SODIUM/SENNA 50/8.6MG TAB PO SCH (21:14)
[2025-03-15] MEDS: busPIRone 15 MG TAB PO SCH (21:14)
[2025-03-16] MEDS: POLYETHYLENE (MIRALAX) 17 GM PACK PO SCH (05:03)
[2025-03-16 07:20] LABS: Hematocrit (blood only) 41.4 % (42.0-52.0); Hemoglobin 14.0 g/dl (14.0-18.0); Immature Granulocytes # (auto) 0.04 K/uL (0.01-0.20); Immature Granulocytes % (auto) 0.3 %; Mean Corpuscular Hemoglobin 30.0 pg (25.0-34.0); Mean Corpuscular Volume 88.8 fL (80.0-100.0); Platelet Count 153 K/uL (130-400); RDW Standard Deviation 46.3 fL (36.4-46.3); Red Blood Count 4.66 M/uL (4.70-6.10); White Blood Count 11.82 K/ul (4.8-10.8)
[2025-03-16] MEDS: ASCORBIC ACID 500 MG TAB PO SCH (07:25)
[2025-03-16] MEDS: CHOLECALCIFEROL 125 MCG (5,000 UNITS) TAB PO SCH (07:26)
[2025-03-16] MEDS: dexAMETHasone 6 MG in SYRINGE 0 ML IV SCH (07:26)
[2025-03-16] MEDS: CYANOCOBALAMIN (B-12) 500 MCG TABLET PO SCH (07:26)
[2025-03-16] MEDS: SACCHAROMYCES BOULARDII 250 MG CAP PO SCH (07:27)
[2025-03-16 07:42] LABS: Anion Gap 5.0 (3-11); Blood Urea Nitrogen 11.0 mg/dl (6-23); Calcium 8.3 mg/dl (8.6-10.3); Carbon Dioxide 26.0 mmol/L (21-32); Chloride 106.0 mmol/L (98-107); Creatinine Clr Calc Pharmacy 90.6 ml/min; Glucose 99.0 mg/dl (70-99(Fasting)); Potassium 3.9 mmol/L (3.5-5.1); Sodium 137.0 mmol/L (136-145)
--- NOTE | 2025-03-16 08:23 | Orthopedic Progress Note ---
Date of Service March 16, 2025 Assessment & Plan (1) Neurogenic claudication due to lumbar spinal stenosis: Plan: Ta is postoperative day 1 status post T11-L2 decompression and fusion. He will start physical therapy today. Maintain SARAH drain. DVT prophylaxis is in the form of teds and SCDs. Continue with pain control. Anticipate discharge home over the next couple of days Admission and Anticipated Discharge Date Admission Date: March 15, 2025 Subjective Ta is postoperative day 1 status post T11-L2 decompression and fusion. He has had an uneventful evening. Lower extremity symptoms greatly improved. Pain is controlled. H&H are 14.0 and 41.4 respectively. SARAH drain output last shift was 75 cc. He is already up and ambulatory around the hallways. No other complaints Review of Systems Review of Systems: All systems reviewed & are unremarkable except as noted in HPI & below Physical Exam Physical Exam: He is laying in bed in no acute distress Alert and oriented x 3 Thoracolumbar dressing is clean dry and intact with a functioning SARAH drain Strength intact bilateral lower extremities Calves soft nontender bilateral lower extremities and JAMIE hose intact Results & Data Vital Signs (Past 12 Hours) Vital Signs Temp Pulse Resp BP Pulse Ox O2 Del Method 03/16/25 07:13 36.9 C 72 18 105/72 97 Room Air 03/16/25 04:52 36.6 C 94 H 102/68 96 Room Air 03/16/25 00:36 36.5 C 90 16 100/67 94 Room Air 03/16/25 00:33 36.5 C 91 H 97/63 L 95 Room Air 03/15/25 21:50 Room Air
--- NOTE | 2025-03-16 14:01 | Hospitalist Progress Note ---
Date of Service March 16, 2025 Assessment & Plan (1) Neurogenic claudication due to lumbar spinal stenosis: (2) GERD (gastroesophageal reflux disease): (3) Anxiety and depression: (4) Obesity: (5) Chronic back pain: (6) Fatty liver: Plan S/p lumbar decompression fusion Chronic back pain - Pain management, bowel regimen and DVT ppx per the primary team - PT/OT consults - Follow am CBC to monitor for acute blood loss, estimated intraoperatively is 250 mL, last hgb of 17.2 on 03/01/25 - current Hgb 14 GERD - cont lansoprazole Obesity Elevated A1C - Is taking tirzepatide at home with once weekly injection - Current weight is 217 lbs Anxiety Depression PTSD - Home medications include: buspar, propanolol, gabapentin Thank you for involving us in the care of Mr. Velasquez. Please do not hesitate to call with questions or concerns. At this time medicine service will follow along. DVT ppx: teds, scds FEN/GI: Advance as tolerated CODE: Full code Dispo: From home, likely to remain in the hospital x 1-2 days Admission and Anticipated Discharge Date Admission Date: March 15, 2025 Subjective Pt seen in follow up med consult, s/p spinal surgery yesterday S/p T11-L2 decompression and fusion yesterday Pain is controlled. Hgb 14. Walked hallways. No fever, chills, chest pain, shortness of breath, abd.pain, n/v Review of Systems Review of Systems: All systems reviewed & are unremarkable except as noted in Subjective Physical Exam Physical Exam: General: WD/WN M in NAD Head: Normocephalic, atraumatic ENT: PERRL, EOMI Chest: Clear to auscultation b/l Cardiac: Regular rate and rhythm, no murmur Back: dressing c/d/i, SARAH drain with serosang.output Abdominal: NABS x 4 quadrants, soft, nondistended, nontender to palpation : Sanabria catheter draining clear yellow urine Extremities: Normal inspection, calves nontender to palpation Psych: Normal mood and affect Neuro: AAO x 3, no facial asymmetry, speech fluent, moves extremities Results & Data Results & Data Vital Signs (Past 12 Hours) Vital Signs Temp Pulse Resp BP Pulse Ox O2 Del Method 03/16/25 07:13 36.9 C 72 18 105/72 97 Room Air 03/16/25 04:52 36.6 C 94 H 102/68 96 Room Air Laboratory Results 03/16/25 Range/Units 06:49 WBC 11.82 H (4.8-10.8) K/ul RBC 4.66 L (4.70-6.10) M/uL Hgb 14.0 (14.0-18.0) g/dl Hct 41.4 L (42.0-52.0) % MCV 88.8 (80.0-100.0) fL MCH 30.0 (25.0-34.0) pg MCHC 33.8 (32.0-36.0) g/dL RDW Std Deviation 46.3 (36.4-46.3) fL RDW Coeff of Johanne 14.3 (11.5-14.5) % Plt Count 153 (130-400) K/uL MPV 11.7 (9.4-12.4) fL Immature Gran % (Auto) 0.3 % Neut % (Auto) 69.4 % Lymph % (Auto) 21.3 % Barber % (Auto) 8.5 % Eos % (Auto) 0.3 % Baso % (Auto) 0.2 % Neut # (Auto) 8.21 H (1.40-6.50) K/uL Lymph # (Auto) 2.52 (1.20-3.40) K/uL Barber # (Auto) 1.00 H (0.11-0.59) K/uL Eos # (Auto) 0.03 (0.00-0.50) K/uL Baso # (Auto) 0.02 (0.00-0.20) K/uL Immature Gran # (Auto) 0.04 (0.01-0.20) K/uL Sodium 137 (136-145) mmol/L Potassium 3.9 (3.5-5.1) mmol/L Chloride 106 (98-107) mmol/L Carbon Dioxide 26 (21-32) mmol/L Anion Gap 5 (3-11) BUN 11 (6-23) mg/dl Creatinine 1.16 (0.6-1.4) mg/dl Est Cr Clr Drug Dosing 90.6 ml/min eGFR 76.26 BUN/Creatinine Ratio 9.5 L (10-20) Glucose 99 (70-99(Fasting)) mg/dl Calcium 8.3 L (8.6-10.3) mg/dl Medications Administered Current Inpatient Medications Acetaminophen (Acetaminophen 500 Mg Tab) 1,000 mg PO Q8H PRN PRN Reason: MILD Pain (1,2,3) & Pre PT Stop: 04/14/25 12:46 Al Hydrox/Mg Hydrox/Simethicone (Aluminum/Magnesium Susp 30 Ml Udc) 30 ml PO Q6H PRN PRN Reason: Dyspepsia Stop: 04/14/25 12:46 Albuterol (Albuterol Hfa 8 Gm Inhaler) 1 puffs INH QID PRN PRN Reason: sob Stop: 04/14/25 12:46 Anastrozole (Anastrozole 1 Mg Tab) 0.5 mg PO MoFr@0900 [facility] Stop: 04/16/25 08:59 Ascorbic Acid (Ascorbic Acid 500 Mg Tab) [facility] [place] Stop: 04/15/25 08:59 Last Admin: 03/16/25 07:25 Dose: 250 mg Bisacodyl (Bisacodyl 10 Mg Supp) 10 mg NC DAILY PRN PRN Reason: Constipation Stop: 04/14/25 12:46 Buspirone HCl (Buspirone 15 Mg Tab) 30 mg PO BID [facility] Stop: 04/14/25 20:59 Last Admin: 03/16/25 07:25 Dose: 30 mg Cetirizine HCl (Cetirizine Hcl 10 Mg Tablet) 5 mg PO [facility] Stop: 04/14/25 20:59 Last Admin: 03/15/25 21:12 Dose: 5 mg Cyanocobalamin (Cyanocobalamin (B-12) 500 Mcg Tablet) 500 mcg PO QAM [facility] Stop: 04/15/25 08:59 Last Admin: 03/16/25 07:26 Dose: 500 mcg Diphenhydramine HCl (Diphenhydramine Capsule 25 Mg Cap) 25 mg PO Q6H PRN PRN Reason: Allergic Rhinitis/Insomnia Stop: 04/14/25 12:46 Famotidine (Famotidine 20 Mg Tab) 20 mg PO Q12H PRN PRN Reason: Dyspepsia Stop: 04/14/25 12:46 Gabapentin (Gabapentin 300 Mg Cap) 300 mg PO [facility] Stop: 04/14/25 20:59 Last Admin: 03/15/25 21:13 Dose: 300 mg Hydromorphone HCl (Hydromorphone Inj 0.5 Mg/0.5 Ml Syr) 0.5 mg IV Q3H PRN PRN Reason: MODERATE Pain(4,5,6)/Pre PT Stop: 03/29/25 12:46 Hydromorphone HCl (Hydromorphone Inj 1 Mg/Ml Syringe) 1 mg IV Q3H PRN PRN Reason: SEVERE Pain (7,8,9,10) Stop: 03/29/25 12:46 Hydroxyzine HCl (Hydroxyzine Hcl 25 Mg Tab) 25 mg PO Q8H PRN PRN Reason: Anxiety Stop: 04/14/25 12:46 Promethazine HCl (Phenergan) 12.5 mg in 50.5 mls @ 202 mls/hr IV Q6H PRN PRN Reason: Nausea And Vomiting Stop: 04/14/25 12:46 Dexamethasone 6 mg/ Syringe 1.5 mls @ 1 mls/min IV DAILY [facility] Stop: 03/18/25 09:02 Last Admin: 03/16/25 07:26 Dose: 1 mls/min Influenza Virus Vaccine Quadrival (Do Not Administer Flu Vaccine) 1 each N/A PRN PRN PRN Reason: Notification Stop: 04/14/25 12:46 Lorazepam (Lorazepam 0.5 Mg Tab) 0.5 mg PO Q8H PRN PRN Reason: Sedation/Anxiety Stop: 04/14/25 12:46 Lorazepam (Lorazepam 2 Mg/1 Ml Vial) 0.5 mg IV Q8H PRN PRN Reason: Sedation/Anxiety Stop: 04/14/25 12:46 Magnesium Hydroxide (Magnesium Hydroxide Susp 30 Ml Udc) 30 ml PO Q24H PRN PRN Reason: Constipation Stop: 04/14/25 12:46 Melatonin (Melatonin 3 Mg Tab) 9 mg PO HS PRN PRN Reason: Sleep Stop: 04/14/25 13:18 Metoclopramide HCl (Metoclopramide Hcl Inj 5 Mg/Ml 2 Ml Vial) 10 mg IV Q6H PRN PRN Reason: Nausea &/or Vomiting Stop: 04/14/25 12:46 Miscellaneous (Check Scopolamine Patch Placement) 1 each N/A QS [facility] Stop: 03/18/25 05:59 Last Admin: 03/16/25 07:21 Dose: 1 each Miscellaneous (Remove Transderm-Scop Patch) 1 each N/A ONE ONE Stop: 03/18/25 06:01 Miscellaneous (Danazol--Order Awaiting Action) 1 each N/A QS [facility] Stop: 04/14/25 15:59 Last Admin: 03/16/25 07:22 Dose: Not Given Miscellaneous (Enclomiphene 25 Mg--Order Awaiting Action) 1 each N/A QS [facility] Stop: 04/14/25 15:59 Last Admin: 03/16/25 07:23 Dose: Not Given Miscellaneous (Tirzepatide (Weight Loss) [Zepbound] 10 Mg/0.5 Ml Pen Injectororder Awaiting Action) 1 each N/A QS [facility] Stop: 04/14/25 15:59 Last Admin: 03/16/25 07:23 Dose: Not Given Naloxone HCl (Naloxone Hcl 0.4 Mg/1 Ml Vial/Carp) 0.1 mg IV Q5M PRN PRN Reason: Oversedation/Resp depression Stop: 04/14/25 12:46 Ondansetron HCl (Ondansetron Inj 2 Mg/Ml 2 Ml Vial) 4 mg IV Q6H PRN PRN Reason: Nausea &/or Vomiting Stop: 04/14/25 12:46 Ondansetron HCl (Ondansetron 4 Mg Od Tab) 4 mg PO Q6H PRN PRN Reason: Nausea Stop: 04/14/25 12:46 Oxycodone HCl (Oxycodone Hcl Ir 5 Mg Tab (Immediate Release)) 5 - 10 mg PO Q4H PRN PRN Reason: MOD/SEV Pain & Pre PT Stop: 03/29/25 12:46 Last Admin: 03/16/25 12:17 Dose: 5 mg Pantoprazole Sodium (Pantoprazole 40 Mg Tab) 40 mg PO QAM [facility] Stop: 04/15/25 08:59 Last Admin: 03/16/25 07:25 Dose: 40 mg Pneumococcal Polyvalent Vaccine (Do Not Administer Pneumococcal Vaccine) 1 each N/A PRN PRN PRN Reason: Notification Stop: 04/14/25 12:46 Polyethylene Glycol (Polyethylene (Miralax) 17 Gm Pack) 17 gm PO Q6 [facility] Stop: 04/15/25 05:59 Last Admin: 03/16/25 12:17 Dose: 17 gm Propranolol HCl (Propranolol Hcl 20 Mg Tab) 20 mg PO TID PRN PRN Reason: anxiety/ptsd Stop: 04/14/25 12:46 Last Admin: 03/15/25 21:13 Dose: 20 mg Saccharomyces Boulardii (Saccharomyces Boulardii 250 Mg Cap) 250 mg PO QAM [facility] Stop: 04/15/25 08:59 Last Admin: 03/16/25 07:27 Dose: 250 mg Senna/Docusate Sodium (Docusate Sodium/Senna 50/8.6mg Tab) 2 tab PO HS [facility] Stop: 04/14/25 20:59 Last Admin: 03/15/25 21:14 Dose: 2 tab Sodium Biphosphate/Sodium Phosphate (Sod Phosphate/Sod Biphosphate Enema 132 Ml Btl) 132 ml NC ONE PRN PRN Reason: Constipation Stop: 04/14/25 12:46 Tramadol HCl (Tramadol Hcl 50 Mg Tablet) 50 - 100 mg PO Q4H PRN PRN Reason: MOD/SEV Pain & Pre PT Stop: 04/14/25 12:46 Vitamin D (Cholecalciferol 125 Mcg (5,000 Units) Tab) 125 mcg PO QAM [facility] Stop: 04/15/25 08:59 Last Admin: 03/16/25 07:26 Dose: 125 mcg
[2025-03-17 07:03] LABS: Hematocrit (blood only) 38.2 % (42.0-52.0); Hemoglobin 12.8 g/dl (14.0-18.0); Mean Corpuscular Hemoglobin 29.7 pg (25.0-34.0); Mean Corpuscular Volume 88.6 fL (80.0-100.0); Platelet Count 152 K/uL (130-400); RDW Standard Deviation 46.4 fL (36.4-46.3); Red Blood Count 4.31 M/uL (4.70-6.10); White Blood Count 12.04 K/ul (4.8-10.8)
[2025-03-17 07:24] VITALS: TEMP 98.1
[2025-03-17 07:31] LABS: Anion Gap 6.0 (3-11); Blood Urea Nitrogen 10.0 mg/dl (6-23); Calcium 8.2 mg/dl (8.6-10.3); Carbon Dioxide 27.0 mmol/L (21-32); Chloride 103.0 mmol/L (98-107); Creatinine Clr Calc Pharmacy 109.5 ml/min; Glucose 89.0 mg/dl (70-99(Fasting)); Magnesium 1.7 mg/dl (1.7-2.4); Potassium 3.9 mmol/L (3.5-5.1); Sodium 136.0 mmol/L (136-145)
[2025-03-17] MEDS: ANASTROZOLE 1 MG TAB PO SCH (09:43)
--- NOTE | 2025-03-17 10:26 | Discharge Summary ---
Date of Service March 17, 2025 Admission HPI Per Admitting Provider This is a 49-year-old male who presents with chronic consistent back and leg pain and failed course of nonoperative care is here for surgical invention. Principal Diagnosis Lumbar spondylosis with radiculopathy Discharge Data Allergies Allergy/AdvReac Type Severity Reaction Status Date / Time No Known Drug Allergies Allergy Verified 03/15/25 07:41 gluten AdvReac Intermediate gluten Verified 03/15/25 07:41 sensitivity - gi upset/sweating/headache Consultations 03/15/25 12:47 Consult Hospitalist Routine Procedures Performed Operation Date: 03/15/25 09:05 Actual Procedures p L2-S1 Exploration Fusion, L1-L2 Decompression, T12-L2 Fusion(Not Applicable) - Mikhail Howell DO Ordered Studies 03/15/25 09:05 FL lumbar spine 2-3V Routine Hospital Course (1) Neurogenic claudication due to lumbar spinal stenosis: Patient underwent lumbar decompression fusion tolerated so stayed the orthopedic for postoperative. Postop he progressed properly. Marked improvement of back and leg symptoms. SARAH drain decreasing poorly. Extra strength testing. Pain controlled. Subsidy discharged home. Discharge orders instructions from the chart for further review. Total Time Total Time Spent Total Time Spent (In Minutes): 20 minutes Discharge Plan Discharge Items Patient Disposition: Home - Self-Care Reason For Visit: Lumbar Disc Disease, Lumbar Foraminal Stenosis, Chantel Discharge Diagnosis: Lumbar spondylosis with radiculopathy Activity: As commented below Non-emergency contact: Primary Care Provider Call non-emergency contact if: you have any medication questions Follow-up/Referrals: PCP,NO [Physician] - Diet: Regular Addtl Attending Provider Instructions: ACTIVITY RECOMMENDATIONS: SELF CARE INSTRUCTIONS AFTER THORACIC/LUMBAR FUSIONS 1. You may walk to your tolerance. It is good exercise for your legs and back. Expect some back and intermittent leg aches and pains. 2. You may perform "counter-top" level activities (make a sandwich, abrahan with a project, etc.). 3. No bending or lifting of more than 10 pounds or back twisting of any nature (roll like a log when turning in bed). 4. You may ride in a car for 20-30 minutes at a time. No driving until after your first visit with your doctor. 5. Frequent changes of position and restricting sitting to 30 minutes at a time will help limit the amount of back spasms and stiffness you may experience. 6. You may discontinue the use of ambulatory aids (cane, crutches, etc.) once your strength and confidence allow. 7. You may precise winder the shower and let water strike your incision when you arrive home at least once daily. Do not take a tub bath, sit in a hot tub or go into a swimming pool until after your first recheck in the office. 8. You may resume previous diet. SPECIAL CARE INSTRUCTIONS: VERY IMPORTANT TO READ AND REVIEW A. Your surgical incision has been closed with a cosmetic suture under the skin that will dissolve in about 6 weeks. In 14 days, you can use a pair of clean scissors and cut the suture that is left outside of the skin at the ends of your incision. 1. The small skin tapes can be removed 7 days after surgery if they have not fallen off by that point. 2. You may keep the wound open to air as much as possible to promote healing after post-op day number 5 unless told otherwise by your doctor. 3. If you think the wound looks like it is becoming infected (redness or worsening drainage) and/or you are experiencing fever, chill or worsening back pain and muscle spasms, contact the office so that we may evaluate you as soon as possible. B. Complications are uncommon, but please contact us if you have any signs or symptoms of: 1. wound infection (fever higher than 102.5 degrees F, redness, separation of wound, drainage, or increasing pain from the incision) 2. blood clots in legs (pain, swelling, redness and warmth in legs) 3. urinary tract infection (fever higher than 102.5 degrees F, burning upon urination or increased frequency of urination) 4. nerve problems (inability to walk on your toes or heels, numbness, loss of bowel or bladder control) 5. any other symptoms that concern you C. Please call the office at if you have any concerns or questions about your operation or recovery. D. No smoking! Smoking drastically decreases the chance of a solid fusion. E. Do not take any anti-inflammatory medications (Indocin, Advil, Motrin, Aspirin, Naprosyn, etc.) as these may inhibit the chance of a solid fusion. Tylenol is okay to take for pain. MANAGING PAIN AFTER SPINAL SURGERY 1. Narcotic medication is intended for short-term use and will be provided for surgical pain. Surgical pain usually lasts for a period of 4-6 weeks. Narcotic medication includes Percocet, Vicodin, Darvocet, Tylenol #3 or Lortab. 2. Longer-term pain is more appropriately treated with non-narcotic medication such as Tylenol ES. 3. Muscle spasm is not appropriately treated with narcotics. Muscle relaxers such as Soma, Flexeril or Skelaxin can be used along with Tylenol ES. 4. Remember that we all live with some "aches and pains". This is not unusual or uncommon after an injury or as we get older. a. Back pain is expected and may include muscle spasms for 4 to 6 weeks after surgery. The pain should gradually improve. If the pain worsens for no apparent reason, please contact the office. b. Intermittent leg pain may also be experienced and should not be concerned about unless it worsens for no apparent reason. If so, please contact the office. 5. We will provide appropriate medication within the normal guidelines of their prescribed use. We will also be very cautious and aware of potential abuse and extended duration of patients' medication needs. a. Pain medications are for your comfort and to assist with sleep and rest so that the tissue can heal. They are not provided in order to return to normal activity and should not be used through the day. To do so or worsening pain at night can result from ongoing tissue damage and development of tolerance to the prescribed medicine. 6. Please allow 2-3 days to process refills. Prescriptions will not be mailed but must be picked up at the office. FOLLOW UP VISIT: Keep your scheduled follow-up appointment. Any questions, please call the office at . Pending Studies at Discharge: No Stand-Alone Forms: My [employer] [facility], Smoking Cessation Medications and DC Order Prescriptions: New tramadol 50 mg tablet 50 mg PO Q6H PRN (Reason: pain, moderate) Qty: 30 0RF oxycodone 5 mg tablet 5 mg PO Q6H PRN (Reason: pain) Qty: 30 0RF Continued buspirone 30 mg Tablet 30 mg PO BID lansoprazole [Prevacid] 15 mg Capsule,Delayed Release(Dr/Ec) 15 mg PO QAM gabapentin 300 mg Capsule 300 mg PO HS propranolol 20 mg Tablet 20 mg PO TID PRN (Reason: anxiety/ptsd) levocetirizine [Xyzal] 5 mg Tablet 5 mg PO HS melatonin 10 mg Tablet 10 mg PO HS PRN (Reason: Sleep) testosterone cypionate 200 mg/mL Kit 0 mg SUBCUT 2XWK Enclomiphene 25 mg PO 2XWK danazol 75 mg PO QAM celecoxib [Celebrex] 200 mg capsule 200 mg PO BID anastrozole 0.5 mg PO 2XWK cyanocobalamin (vitamin B-12) [Vitamin B-12] 1,000 mcg Tablet 1,000 mcg PO QAM ascorbic acid (vitamin C) [Vitamin C] 250 mg Tablet 250 mg PO QAM Saccharomyces boulardii [Florastor] 250 mg Capsule 250 mg PO QAM cholecalciferol (vitamin D3) [Vitamin D3] 125 mcg (5,000 unit) Tablet 125 mcg PO QAM Men 50 Plus Multivitamin 500-10-039-300 mcg Tablet 1 tab PO QAM Krill Oil ([place] 3 and 6) 1,500-165-67.5 mg Capsule 2 cap PO QAM Zepbound 10 mg/0.5 mL Pen Injector 10 mg SUBCUT WK albuterol sulfate 90 mcg/actuation Hfa Aerosol Inhaler 1 inh INHALATION QID PRN (Reason: sob) Admission Data Admit Date/Time: 03/15/25 11:28 Attending Provider: Mikhail Howell Admit Provider: Mikhail Howell Primary Care Provider: Danielle Mendoza Other Providers: Lois Caldwell; [facility]
[2025-03-17] MEDS: MAGNESIUM OXIDE 400 MG TAB PO SCH (11:12)
[2025-03-17 11:37] VITALS: BP 137/91; PULSE 83; RESP 15; O2SAT 99
[2025-03-18] MEDS ORDERED: REMOVE TRANSDERM-SCOP PATCH ONE (06:00)
== END 2025-03-17 17:35 | disposition home or self-care (01) | DRG 428 ==
LOC: ASU 07:24 → 3E 11:28